=== PATIENT | female | born 1970 | race Caucasian/White ===

== ENCOUNTER → 2019-10-06 | Outpatient (CLI) | payer BC ==
--- NOTE | 2019-10-07 12:09 | MM ---
Reason for exam: screening (asymptomatic). Last mammogram was performed 5 years and 5 months ago. History: Family history of breast cancer in maternal aunt. Physical Findings: A clinical breast exam by your physician is recommended on an annual basis and results should be correlated with mammographic findings. MG 3D Screening Mammo W/Cad Bilateral CC and MLO view(s) were taken. Prior study comparison: May 15, 2014, bilateral MG screening mammo w CAD. There are scattered fibroglandular densities. There is no discrete abnormality. No significant changes when compared with prior studies. ASSESSMENT: Negative, BI-RAD 1 RECOMMENDATION: Routine screening mammogram of both breasts in 1 year.
== END | disposition home or self-care (01) ==
LOC: RADMAMWWP 07:01
PROVIDERS: ATTEND Family Medicine
DX: Z12.31 Encounter for screening mammogram for malignant neoplasm of breast (principal)
CPT/HCPCS: 77063; 77067

== ENCOUNTER → 2019-11-03 | Outpatient (CLI) | payer BC ==
--- NOTE | 2019-11-03 13:30 | ECHOS ---
STRESS ECHOCARDIOGRAM INDICATIONS: Palpitations MEDICATIONS: Lisinopril, HCTZ, Vitamin D, B Complex, Vitamin C, Tumeric, Mutlvitamin. BASELINE HEART RATE: 77 BASELINE BLOOD PRESSURE: 147/49 MAXIMUM HEART RATE: 167 MAXIMUM BLOOD PRESSURE: 175/89 85% MPHR: 145 100% MPHR: 171 METS: 7.0 MAXIMUM STAGE REACHED: 2 TOTAL EXERCISE TIME: 5:00 CLINICAL INFORMATION: Baseline rhythm is a sinus mechanism, rate of 77, poor R-wave progression, borderline left axis deviation. Baseline blood pressure 147/49 mmHg. Patient exercised on Kwabena protocol for 5 minutes reaching a peak rate of 167 beats per minute which is equal to 97% maximum predicted heart rate. Peak blood pressure 175/89 mmHg. Test was terminated due to fatigue. There was no chest pain. Electrocardiograph monitoring revealed no evidence of diagnostic ischemic ST deviation. FINDINGS: Baseline echocardiogram revealed normal wall motion. At peak exercise, there was normal wall motion augmentation with no hypokinesis or dyskinesis. CONCLUSION: 1. Decreased exercise tolerance with normal echocardiograph response to exercise. 2. Normal stress echocardiogram with no evidence of stress-induced ischemia. MMODL / IJN: [id number] /
== END | disposition home or self-care (01) ==
LOC: RADNMMAIN 09:00
PROVIDERS: ATTEND Family Medicine
DX: R00.2 Palpitations (principal)
CPT/HCPCS: 93351

== ENCOUNTER 2019-12-25 22:30 | Emergency (ER) | payer BC ==
[2019-12-25 22:38] VITALS: TEMP 99
--- NOTE | 2019-12-25 22:44 | ED ---
Female Urogenital HPI - General Chief complaint: Urogenital Stated complaint: Poss UTI Time Seen by Provider: 12/25/19 22:41 Source: patient Mode of arrival: ambulatory Limitations: no limitations - History of Present Illness MD Complaint: dysuria, other -: days(s) Location: suprapubic Radiation: non-radiating Severity: moderate Quality: cramping, burning Consistency: constant Improves with: none Worsens with: urination Patient : No Associated Symptoms: denies other symptoms - Related Data Previous Rx's Medication Instructions Recorded Hydrocodone/Acetaminophen [[place] 1 each PO Q6HR PRN #12 tab 12/26/19 5-325] Phenazopyridine [Pyridium] 100 mg PO TID #6 tablet 12/26/19 Allergies Allergy/AdvReac Type Severity Reaction Status Date / Time Penicillins AdvReac Nausea Verified 12/25/19 22:38 Review of Systems ROS Statement: Those systems with pertinent positive or pertinent negative responses have been documented in the HPI. ROS Other: All systems not noted in ROS Statement are negative. Constitutional: Denies: fever, chills Respiratory: Denies: cough, dyspnea Cardiovascular: Denies: chest pain, palpitations, edema Gastrointestinal: Reports: abdominal pain. Denies: nausea, vomiting, diarrhea, constipation, melena, hematochezia Genitourinary: Reports: dysuria, frequency, hematuria. Denies: discharge Musculoskeletal: Denies: back pain Skin: Denies: rash Neurological: Denies: headache Past Medical History Past Medical History: Hypertension History of Any Multi-Drug Resistant Organisms: None Reported Past Surgical History: Joint Replacement Past Psychological History: No Psychological Hx Reported Smoking Status: Never smoker Past Alcohol Use History: Rare Past Drug Use History: None Reported General Exam Limitations: no limitations General appearance: alert, in no apparent distress Head exam: Present: atraumatic, normocephalic Eye exam: Present: normal appearance. Absent: scleral icterus, conjunctival injection ENT exam: Present: normal oropharynx Neck exam: Present: normal inspection, full ROM Respiratory exam: Present: normal lung sounds bilaterally. Absent: respiratory distress, wheezes, rales, rhonchi, stridor Cardiovascular Exam: Present: regular rate, normal rhythm, normal heart sounds. Absent: systolic murmur, diastolic murmur, rubs, gallop GI/Abdominal exam: Present: soft. Absent: distended, tenderness, guarding, rebound, rigid, mass Extremities exam: Present: normal inspection, normal capillary refill. Absent: pedal edema, calf tenderness Back exam: Present: normal inspection. Absent: CVA tenderness (R), CVA tenderness (L), vertebral tenderness Neurological exam: Present: alert Skin exam: Present: warm, dry, intact, normal color. Absent: rash Course Vital Signs 12/25/19 22:34 Temperature 99 F Pulse Rate 92 Respiratory 20 Rate Blood Pressure 136/101 O2 Sat by Pulse 97 Oximetry Medical Decision Making - Lab Data Lab Results 12/25/19 Range/Units 23:20 Urine Color [place] Urine Appearance Cloudy H (Clear) Urine RBC 17 H (0-5) /hpf Urine WBC 62 H (0-5) /hpf Urine WBC Clumps Rare H (None) /hpf Ur Squamous Epith Cells 8 H (0-4) /hpf Urine Bacteria Occasional H (None) /hpf Hyaline Casts 1 (0-2) /lpf Urine Mucus Rare H (None) /hpf Disposition Clinical Impression: Hypertension, Urinary tract infection Disposition: HOME SELF-CARE Condition: Good Instructions (If sedation given, give patient instructions): Urinary Tract Infection in Women (ED), Hypertension (ED) Prescriptions: Hydrocodone/Acetaminophen [[place] 5-325] 1 each PO Q6HR PRN #12 tab PRN Reason: Pain Phenazopyridine [Pyridium] 100 mg PO TID #6 tablet Is patient prescribed a controlled substance at d/c from ED?: Yes When asked, does pt state using other controlled substances?: No If prescribed controlled substance>3 days was MAPS reviewed?: Prescribed <3 Days If opioid is for acute pain is fill amount 7 days or less?: Yes If Rx opioid, was Start Talking consent form obtained?: Yes Referrals: Shahram Mosley MD [REFERRING] - 1-2 days
[2019-12-25] MEDS ORDERED: PHENAZOPYRIDINE 100 MG TAB PO ONE (23:30)
[2019-12-25 23:50] LABS: Appearance,Urine Cloudy (Clear); Bacteria,Urine Occasional /hpf; Hyaline Casts,Urine 1 /lpf (0-2); Mucus,Urine Rare /hpf; RBC,Urine 17 /hpf (0-5); Squamous Epithelial Cell,Urine 8 /hpf (0-4); WBC,Urine 62 /hpf (0-5)
[2019-12-26] LABS: Color,Urine Orange
[2019-12-26] MEDS ORDERED: HYDROcodone/APAP 5-325MG 1 EACH TAB PO STA (00:17)
[2019-12-26] MEDS ORDERED: IBUPROFEN 800 MG TAB PO STA (00:17)
--- NOTE | 2019-12-26 01:11 | CT ---
EXAMINATION TYPE: CT abdomen pelvis wo con DATE OF EXAM: 12/26/2019 COMPARISON: None HISTORY: abd pain CT DLP: 1688.9 mGycm Automated exposure control for dose reduction was used. Lung bases are clear of infiltrate. There is no pleural effusion. Heart size is normal. There is no p ericardial effusion. Stomach is intact. Liver spleen pancreas gallbladder appear normal. Bile ducts a re not dilated. There is no adrenal mass. Kidneys have normal size. There is right side mild hydronephrosis and hydro ureter. There is right side. Ureteral edema. I do not see a definite ureteral calculus. Bladder is al most empty. Appendix is posterior and medial and appears normal. There is no mesenteric edema. There is no ascite s or free air. There is no bowel obstruction. There is left side periureteral edema. I see no definit e left side ureteral calculus. There is no inguinal hernia. Uterus is retroverted. Lumbar vertebra appear intact. There is no compre ssion fracture. Bony pelvis is intact. Hip joint spaces are normal. IMPRESSION: Right-sided hydronephrosis and hydroureter with periureteral edema. No ureteral calculus identified. There is also left side periureteral edema. Appearance of the kidneys could relate to recently passed stones or nonopaque stones.. No calculus seen within the kidneys. Appearance of the upper collecting systems could also relate to acute bilateral pyelonephritis.
[2019-12-26 01:33] VITALS: BP 119/65; PULSE 86; RESP 16
== END 2019-12-26 01:28 | disposition home or self-care (01) ==
LOC: EC 22:30
DX: N39.0 Urinary tract infection, site not specified (principal); I10 Essential (primary) hypertension; Z88.0 Allergy status to penicillin
CPT/HCPCS: 74176; 81001; 87077; 87086; 87186; 99284

== ENCOUNTER → 2020-07-12 | Outpatient (CLI) | payer BC ==
[2020-07-12 10:34] LABS: HCT 40.4 % (37.2-46.3); MCH 32.3 pg (27.0-32.0); MCHC 32.2 g/dL (32.0-37.0); MCV 100.5 fL (80.0-97.0); Mean Platelet Volume 9.9 fL (9.5-12.2); Platelet Count 257 X 10*3/uL (140-440); RBC 4.02 X 10*6/uL (4.10-5.20); WBC 9.17 X 10*3/uL (4.50-10.00)
[2020-07-12 11:56] LABS: Albumin/Globulin Ratio 1.6 (1.60-3.17); Calcium 9.4 mg/dL (8.7-10.3); Chol/HDL Ratio 3.24; Globulin 2.5 g/dL (1.6-3.3); LDL Cholesterol,Calculated 78.6 mg/dL (0.0-131.0); Non-African American GFR(CKD) 75.1 (60.0-200.0); Potassium 4.5 mmol/L (3.5-5.5); Total Bilirubin 0.7 mg/dL (0.2-1.2); Total Protein 6.5 g/dL (6.2-8.2); VLDL Calculation 24.4 mg/dL (5.00-40.00)
== END | disposition home or self-care (01) ==
LOC: LABWHC1 07:12
PROVIDERS: ATTEND Family Medicine
DX: Z00.01 Encounter for general adult medical examination with abnormal findings (principal)
CPT/HCPCS: 36415; 80053; 80061; 85027

== ENCOUNTER 2020-10-05 17:44 | Inpatient (IN) | payer BC, OTHER ==
[2020-10-05] MEDS ORDERED: AMIODARONE 360 MG in DEXTROSE 5% IN WATER 200 ML IV ONE ×2 (18:08)
[2020-10-05] MEDS ORDERED: DEXTROSE 5% IN WATER 100 ML with AMIODARONE 150 MG IV ONE (18:08)
--- NOTE | 2020-10-05 18:12 | ED ---
General Adult HPI - General Chief complaint: Arrhythmia/Palpitations Stated complaint: Fast HR/SOB Time Seen by Provider: 10/05/20 17:56 Source: patient Mode of arrival: ambulatory Limitations: no limitations - History of Present Illness Initial comments: Dictation was produced using [email or web address] dictation software. please excuse any grammatical, word or spelling errors. Chief Complaint: 50-year-old female presents with palpitations History of Present Illness: Is a 50-year-old female presents today with palpitations. Patient states that she's been having episodes of palpitations for the last year and a half. She did not seek any medical attention for it. Patient states at 1:15 PM her symptoms began. He complains of feeling like her heart is beating out of her chest. She started to develop some very mild shortness of breath no chest pain. Patient states she had a stress tests last year which is unremarkable. She has not seen a rubber worker for her palpitations. Patient states she started having episodes of this that occur every other month. Typically these episodes have been resolving on her own except today it has not improved or has not gone back to normal. Patient has history of hypertension. The ROS documented in this emergency department record has been reviewed and confirmed by me. Those systems with pertinent positive or negative responses have been documented in the HPI. All other systems are other negative and/or noncontributory. PHYSICAL EXAM: General Impression: Alert and oriented x3, mild distress HEENT: Normocephalic atraumatic, extra-ocular movements intact, pupils equal and reactive to light bilaterally, mucous membranes moist. Cardiovascular: Tachycardic Chest: Able to complete full sentences, no retractions, no tachypnea Abdomen: abdomen soft, non-tender, non-distended, no organomegaly Musculoskeletal: Pulses present and equal in all extremities, no peripheral edema Motor: no focal deficits noted Neurological: CN II-XII grossly intact, no focal motor or sensory deficits noted Skin: Intact with no visualized rashes Psych: Normal affect and mood ED course: 50 yo Female presents to the emergency department for palpitations. As upon arrival shows heart rate of 180, 91% on room air. EKG shows wide QRS tachycardia concerning for ventricular tachycardia. There was an EKG inpatient stress EKG from October of last year which did not show any delta waves. EKG that time looked normal sinus rhythm without any abnormalities. Patient started on amiodarone and converted. According to the corporate consultant she converted at 639pm Patient reevaluated. Repeat EKG shows normal sinus rhythm with a rate of 100. There is no interval abnormalities. No delta wave or Brug[place] wave. Chest x-ray normal unremarkable. Labs are benign. Patient will be admitted for cardiology consultation. Patient will be admitted to [facility]. EKG interpretation: Ventricular rate 213, ventricular tachycardia, QRS 120, QTC 414. No HI prolongation, no QTC prolongation, no ST or T-wave changes noted. - Related Data Previous Rx's Medication Instructions Recorded Hydrocodone/Acetaminophen [[place] 1 each PO Q6HR PRN #12 tab 12/26/19 5-325] Phenazopyridine [Pyridium] 100 mg PO TID #6 tablet 12/26/19 Allergies Allergy/AdvReac Type Severity Reaction Status Date / Time Penicillins AdvReac Nausea Verified 10/05/20 17:55 Review of Systems ROS Statement: Those systems with pertinent positive or pertinent negative responses have been documented in the HPI. ROS Other: All systems not noted in ROS Statement are negative. Past Medical History Past Medical History: Hypertension History of Any Multi-Drug Resistant Organisms: None Reported Past Surgical History: Joint Replacement Past Psychological History: No Psychological Hx Reported Smoking Status: Never smoker Past Alcohol Use History: Rare Past Drug Use History: None Reported General Exam Limitations: no limitations Course Vital Signs 10/05/20 10/05/20 10/05/20 17:53 18:16 18:25 Temperature 98.2 F Pulse Rate 180 H 213 H 197 H Respiratory 18 22 Rate Blood Pressure 128/98 127/31 O2 Sat by Pulse 91 L 96 Oximetry 10/05/20 10/05/20 18:38 18:40 Temperature Pulse Rate 189 H 104 H Respiratory 16 Rate Blood Pressure 125/80 125/80 O2 Sat by Pulse 96 Oximetry Medical Decision Making - Lab Data Result diagrams: 10/05/20 18:14 10/05/20 18:14 Lab Results 10/05/20 10/05/20 Range/Units 18:14 18:14 WBC 15.7 H (3.8-10.6) k/uL RBC 4.26 (3.80-5.40) m/uL Hgb 14.4 (11.4-16.0) gm/dL Hct 41.3 (34.0-46.0) % MCV 97.1 (80.0-100.0) fL MCH 33.8 (25.0-35.0) pg MCHC 34.8 (31.0-37.0) g/dL RDW 12.2 (11.5-15.5) % Plt Count 303 (150-450) k/uL MPV 7.2 Neutrophils % 79 % Lymphocytes % 15 % Monocytes % 4 % Eosinophils % 1 % Basophils % 1 % Neutrophils # 12.3 H (1.3-7.7) k/uL Lymphocytes # 2.3 (1.0-4.8) k/uL Monocytes # 0.7 (0-1.0) k/uL Eosinophils # 0.1 (0-0.7) k/uL Basophils # 0.1 (0-0.2) k/uL Sodium 141 (137-145) mmol/L Potassium 4.4 (3.5-5.1) mmol/L Chloride 104 (98-107) mmol/L Carbon Dioxide 27 (22-30) mmol/L Anion Gap 10 mmol/L BUN 19 H (7-17) mg/dL Creatinine 0.87 (0.52-1.04) mg/dL Est GFR (CKD-EPI)AfAm >90 (>60 ml/min/1.73 sqM) Est GFR (CKD-EPI)NonAf 78 (>60 ml/min/1.73 sqM) Glucose 173 H (74-99) mg/dL Calcium 9.5 (8.4-10.2) mg/dL Ionized Calcium Daniel 4.9 (4.5-5.3) mg/dL Magnesium 1.7 (1.6-2.3) mg/dL Critical Care Time Critical Care Time: Yes Total Critical Care Time: 33 Disposition Clinical Impression: V-tach Disposition: ADMITTED IP TO THIS HOSP Condition: Fair Referrals: Kyle Plasencia MD [Primary Care Provider] - 1-2 days
[2020-10-05 18:34] LABS: Basophils # (A) 0.1 k/uL (0-0.2); Basophils % (A) 1 %; Eosinophils # (A) 0.1 k/uL (0-0.7); Eosinophils % (A) 1 %; HCT 41.3 % (34.0-46.0); HGB 14.4 gm/dL (11.4-16.0); Lymphocytes # (A) 2.3 k/uL (1.0-4.8); Lymphocytes % (A) 15 %; MCH 33.8 pg (25.0-35.0); MCHC 34.8 g/dL (31.0-37.0); MCV 97.1 fL (80.0-100.0); Mean Platelet Volume 7.2; Monocytes # (A) 0.7 k/uL (0-1.0); Monocytes % (A) 4 %; Neutrophils # (A) 12.3 k/uL (1.3-7.7); Neutrophils % (A) 79 %; Platelet Count 303 k/uL (150-450); RBC 4.26 m/uL (3.80-5.40); RDW 12.2 % (11.5-15.5); WBC 15.7 k/uL (3.8-10.6)
[2020-10-05 18:44] LABS: Ionized Calcium 4.9 mg/dL (4.5-5.3)
[2020-10-05 18:50] LABS: African American GFR (CKD) >90 (>60 ml/min/1.73 sqM); Anion Gap 10 mmol/L; Blood Urea Nitrogen 19 mg/dL (7-17); Calcium 9.5 mg/dL (8.4-10.2); Carbon Dioxide 27 mmol/L (22-30); Chloride 104 mmol/L (98-107); Glucose 173 mg/dL (74-99); Magnesium 1.7 mg/dL (1.6-2.3); Non-African American GFR(CKD) 78 (>60 ml/min/1.73 sqM); Potassium 4.4 mmol/L (3.5-5.1); Sodium 141 mmol/L (137-145)
[2020-10-05 18:58] LABS: INR 0.9 (<1.2); Partial Thromboplastin Time 21.9 sec (22.0-30.0); Prothrombin Time 10.2 sec (9.0-12.0)
--- NOTE | 2020-10-05 18:58 | XR ---
EXAMINATION TYPE: XR chest 1V portable DATE OF EXAM: 10/05/2020 COMPARISON: NONE HISTORY: Palpitations and V. tach. TECHNIQUE: Single AP portable frontal upright view of the chest is obtained. FINDINGS: Slightly elevated left hemidiaphragm. There is mild chronic parenchymal changes without montalvo spicious focal air space opacity, pleural effusion, or pneumothorax seen. The cardiac silhouette siz e is upper limits of normal. Overlying EKG leads. The osseous structures are intact. IMPRESSION: No acute process.
[2020-10-05] MEDS ORDERED: NALOXONE 0.4 MG/ML 1 ML VIAL IV PRN (19:04)
[2020-10-05] MEDS ORDERED: HEPARIN SODIUM 1,000 UN/ML (10ML VL) IV ONE (19:20)
[2020-10-05] MEDS ORDERED: ASPIRIN 325 MG TAB PO STA (19:20)
[2020-10-05] MEDS ORDERED: HEPARIN SODIUM 1,000 UN/ML (10ML VL) IV PRN (19:20)
[2020-10-05] MEDS ORDERED: HEPARIN SOD,PORK IN 0.45% NACL 25,000 UNIT in 0.45% NACL 1 250ML.BAG IV SCH (19:30)
[2020-10-05] MEDS ORDERED: MAGNESIUM SULFATE-D5W PMX 1 GM in DEXTROSE/WATER 1 100ML.BAG IVPB ONE (23:21)
[2020-10-05] MEDS: SODIUM CHLORIDE 0.9% 1,000 ML IV SCH (23:59)
[2020-10-06] MEDS: AMIODARONE 450 MG in DEXTROSE 5% IN WATER 250 ML IV SCH ×4 (00:28→17:05)
--- NOTE | 2020-10-06 01:59 | P.HPIM ---
History of Present Illness H&P Date: 10/05/20 Chief Complaint: palpitation 50 year old female with intermittent asthma, obesity patient comes in due to persistent palpitations of few hours duration. it started randomly , she was initially asymptomatic , and carried on her daily activities, went shopping and driving among other activities, she reports all she had to do is take it slow, as she was feeling tired little bit. then few hours later , she noticed that palpitations persisted, and now associated with mid chest discomfort and and nausea, denies any SOB or sweating. this has happened before many times over the past few years, but usually short lived events. she had a stress test over a year ago and was negative. she never had personnel monitor , and no abnormal rhythm ever captured. today while in the ED, she was foundto have VTACH. she was started on amiodarone , and found to have elevated trops , for which started on heparin drip for high risk NSTEMI . she otherwise believes she is in good health , and denies any fever, chills, cough, abd pain , or GI bleeding, no recent travel or hospitalization. her father of serious heart arrhythmia at young age of 44 Review of Systems Pertinent positives as noted in HPI. All other systems were reviewed and are neg ative Past Medical History Past Medical History: Hypertension History of Any Multi-Drug Resistant Organisms: None Reported Past Surgical History: Joint Replacement Past Anesthesia/Blood Transfusion Reactions: Postoperative Nausea & Vomiting (PONV) Past Psychological History: No Psychological Hx Reported Smoking Status: Never smoker Past Alcohol Use History: Rare Past Drug Use History: None Reported - Past Family History father Additional Family Medical History / Comment(s): at 44 of major arrhythmia Medications and Allergies Home Medications Medication Instructions Recorded Confirmed Type Ascorbic Acid [Vitamin C] 1,000 mg PO DAILY 10/05/20 10/05/20 History Cholecalciferol [Vitamin D3 (25 25 mcg PO DAILY 10/05/20 10/05/20 History Mcg = 1000 Iu)] Lisinopril-Hctz 10-12.5 mg 1 tab PO DAILY 10/05/20 10/05/20 History [Zestoretic 10-12.5] Multivitamins, Thera [Multivitamin 1 tab PO DAILY 10/05/20 10/05/20 History (formulary)] Turmeric Root Extract [Turmeric] 500 mg PO DAILY 10/05/20 10/05/20 History Vitamin B Complex 1 cap PO DAILY 10/05/20 10/05/20 History Allergies Allergy/AdvReac Type Severity Reaction Status Date / Time Penicillins AdvReac Nausea Verified 10/05/20 19:32 Physical Exam Vitals: Vital Signs Temp Pulse Pulse Resp BP BP Pulse Ox 10/05/20 22:25 98.1 F 91 16 113/68 95 10/05/20 20:58 97 18 138/63 99 10/05/20 18:40 104 H 16 125/80 96 10/05/20 18:38 189 H 125/80 10/05/20 18:25 197 H 22 127/31 96 10/05/20 18:16 213 H 10/05/20 17:53 98.2 F 180 H 18 128/98 91 L Intake and Output 10/05/20 10/05/20 10/06/20 14:59 22:59 06:59 Other: Weight 124.738 kg Constitutional: No acute distress, conversant, pleasant Eyes: Anicteric sclerae, moist conjunctiva, Pupils equal round reactive to light ENMT: NC/AT Oropharynx clear, no erythema, or exudates Neck: Supple, FROM, no masses, or JVD No carotid bruits No thyromegaly Lungs: Clear to auscultation Clear to percussion Normal respiratory effort, no accessory muscle use Cardiovascular: Heart regular in rate and rhythm, No murmurs, gallops, or rubs No peripheral edema Abdominal: Soft Nontender, no guarding, rebound or rigidity Abdomen moving with respiration Normoactive bowel sounds No hepatomegaly, No splenomegaly No palpable mass No abdominal wall hernia noted Skin: Normal temperature, tone, texture, turgor No induration No subcutaneous nodules No rash, lesions No ulcers Extremities: No digital cyanosis No clubbing Pedal pulses intact and symmetrical Radial pulses intact and symmetrical No calf tenderness Psychiatric: Alert and oriented to person, place and time Appropriate affect fair judgement Neuro Muscles Strength 5/5 in all 4 extremities Sensation to light touch grossly present throughout Cranial nerves II-XII grossly intact No focal sensory deficits Lymphatics: no palpable cervical or supraclavicular , or inguinal lymph nodes Results CBC & Chem 7: 10/05/20 18:14 10/05/20 18:14 Labs: Abnormal Lab Results - Last 24 Hours (Table) 10/05/20 10/05/20 10/05/20 Range/Units 18:14 18:14 18:14 WBC 15.7 H (3.8-10.6) k/uL Neutrophils # 12.3 H (1.3-7.7) k/uL APTT 21.9 L (22.0-30.0) sec BUN 19 H (7-17) mg/dL Glucose 173 H (74-99) mg/dL Troponin I (0.000-0.034) ng/mL 10/05/20 Range/Units 18:14 WBC (3.8-10.6) k/uL Neutrophils # (1.3-7.7) k/uL APTT (22.0-30.0) sec BUN (7-17) mg/dL Glucose (74-99) mg/dL Troponin I 0.111 H* (0.000-0.034) ng/mL Thrombosis Risk Factor Assmnt - Choose All That Apply Each Factor Represents 1 point: Age 41-60 years Thrombosis Risk Factor Assessment Total Risk Factor Score: 1 Thrombosis Risk Factor Assessment Level: Low Risk Assessment and Plan Assessment: high risk NSTEMI with Vtach rule out ACS personnel monitor trend trops cardio consult correct electrolyte , hypomagnesemia amiodarone drip heparin drip monitor vital signs fall precautions tsh wnl reactive leukocytosis intermittent asthma , PRN duoneb obesity , life style modification CODE STATUS:full code DVT prophylaxis: heparin drip Discussed with: Patient, ER, RN Anticipated length of stay > than [address]: home A total of 75 minutes was spent on the care of this complex patient more than 50% of the time was spent in counseling and care coordination.
[2020-10-06] MEDS ORDERED: IPRATROPIUM-ALBUTEROL 3 ML NEB INHALATION PRN (02:26)
[2020-10-06 08:37] LABS: Basophils # (A) 0.1 k/uL (0-0.2); Basophils % (A) 1 %; Eosinophils # (A) 0.2 k/uL (0-0.7); Eosinophils % (A) 2 %; HCT 39.3 % (34.0-46.0); HGB 13.1 gm/dL (11.4-16.0); Lymphocytes # (A) 2.2 k/uL (1.0-4.8); Lymphocytes % (A) 21 %; MCH 32.9 pg (25.0-35.0); MCHC 33.3 g/dL (31.0-37.0); MCV 98.9 fL (80.0-100.0); Mean Platelet Volume 7.2; Monocytes # (A) 0.5 k/uL (0-1.0); Monocytes % (A) 4 %; Neutrophils # (A) 7.5 k/uL (1.3-7.7); Neutrophils % (A) 71 %; Platelet Count 220 k/uL (150-450); RBC 3.98 m/uL (3.80-5.40); RDW 12.2 % (11.5-15.5); WBC 10.6 k/uL (3.8-10.6)
[2020-10-06] MEDS ORDERED: ALPRAZolam 0.5 MG TAB PO PRN (08:51)
[2020-10-06] MEDS ORDERED: NITROGLYCERIN SL TABS 0.4 MG TAB SUBLINGUAL PRN (08:51)
[2020-10-06] MEDS ORDERED: ALPRAZolam 0.25 MG TAB PO PRN (08:51)
[2020-10-06] MEDS ORDERED: ATORVASTATIN 80 MG TAB PO STA (08:51)
[2020-10-06 08:52] LABS: ALT 46 U/L (4-34); AST 40 U/L (14-36); African American GFR (CKD) >90 (>60 ml/min/1.73 sqM); Albumin 3.9 g/dL (3.5-5.0); Alkaline Phosphatase 63 U/L (38-126); Anion Gap 6 mmol/L; Blood Urea Nitrogen 17 mg/dL (7-17); Calcium 8.4 mg/dL (8.4-10.2); Carbon Dioxide 27 mmol/L (22-30); Chloride 106 mmol/L (98-107); Glucose 119 mg/dL (74-99); Non-African American GFR(CKD) >90 (>60 ml/min/1.73 sqM); Potassium 3.9 mmol/L (3.5-5.1); Sodium 139 mmol/L (137-145); Total Bilirubin 0.7 mg/dL (0.2-1.3); Total Protein 6.8 g/dL (6.3-8.2)
[2020-10-06] MEDS: LISINOPRIL-HCTZ 10-12.5 MG 1 EACH TAB PO SCH (09:03)
[2020-10-06] MEDS ORDERED: MIDAZOLAM 2 MG/2 ML VIAL IVP ONE (10:10)
[2020-10-06] MEDS ORDERED: fentaNYL (PF) 50 MCG/ML 2 ML AMP IVP ONE (10:10)
[2020-10-06] MEDS ORDERED: LIDOCAINE 1% INJ 10MG/ML (20 ML MDV) SQ ONE (10:15)
[2020-10-06] MEDS ORDERED: VERAPAMIL SYRINGE (5 MG/10 ML) INTRAARTER ONE (10:18)
[2020-10-06] MEDS ORDERED: HEPARIN SODIUM 1,000 UN/ML (10ML VL) IV ONE (10:20)
[2020-10-06] MEDS ORDERED: IV FLUID CONTINUATION 1,000 ML IV ONE (10:26)
[2020-10-06] MEDS ORDERED: IOPAMIDOL-370 125ML BTL INJ ONE ×2 (10:28)
--- NOTE | 2020-10-06 10:33 | ECHOF ---
Referral Reason:LV function MEASUREMENTS -------- HEIGHT: 157.5 cm WEIGHT: 126.1 kg BP: 113/65 IVSd: 1.3 cm (0.6 - 1.1) LVIDd: 4.0 cm (3.9 - 5.3) LVPWd: 1.4 cm (0.6 - 1.1) IVSs: 1.8 cm LVIDs: 1.8 cm LVPWs: 1.9 cm Ao Diam: 3.0 cm (2.0 - 3.7) AV Cusp: 1.8 cm (1.5 - 2.6) LA Diam: 2.9 cm (2.7 - 3.8) MV EXCURSION: 16.486 mm (> 18.000) MV EF SLOPE: 145 mm/s (70 - 150) EPSS: 0.4 cm MV E Cedric: 1.04 m/s MV DecT: 201 ms MV A Cedric: 0.76 m/s MV E/A Ratio: 1.37 RAP: 5.00 mmHg RVSP: 15.32 mmHg FINDINGS -------- Sinus rhythm. This was a technically difficult study with suboptimal views. The left ventricular size is normal. There is moderate concentric left ventricular hypertrophy. O verall left ventricular systolic function is normal with, an EF between 55 - 60 %. The right ventricle is normal in size. The left atrial size is normal. The right atrial size is normal. Lumason used The aortic valve is trileaflet, and appears structurally normal. No aortic stenosis or regurgitation. The mitral valve is normal. Mild mitral regurgitation is present. The tricuspid valve appears structurally normal. Mild tricuspid regurgitation present. Right vent ricular systolic pressure is normal at < 35 mmHg. There is no pulmonic regurgitation present. The aortic root size is normal. IVC Not well visulized. There is no pericardial effusion. CONCLUSIONS -------- 1. This was a technically difficult study with suboptimal views. 2. There is moderate concentric left ventricular hypertrophy. 3. Overall left ventricular systolic function is normal with, an EF between 55 - 60 %. 4. The left atrial size is normal. 5. The aortic valve is trileaflet, and appears structurally normal. No aortic stenosis or regurgitati on. 6. Mild mitral regurgitation is present. 7. Mild tricuspid regurgitation present. 8. There is no pericardial effusion. BESSEMER CONVERTER OPERATOR: Anna Ball RDCS
--- NOTE | 2020-10-06 10:36 | P.CRDCN ---
History of Present Illness History of present illness: HISTORY OF PRESENTING ILLNESS This is a pleasant 50-year-old female past medical history significant for asthma, hypertension, COVID-19 in July. She does not follow with a cardiol ogist. We have been asked to see in consultation for ventricular tachycardia. Patient states that she's been having symptoms of palpitations and shortness of breath for the past 3-4 years. Yesterday around 1:30 PM she started having similar episodes of palpitations, shortness of breath. She was getting ready for work she started to go for a walk because sometimes activity made him feel better. She continued to have the symptoms but this time had increased nausea and a headache and started to feel weak and bilateral arms. The symptoms were new since she decided to present to the emergency department. She denies chest pain, lightheadedness, dizziness, presyncope, syncope, symptoms of orthopnea or PND. She states that she has been followed by her primary care provider that has been monitoring this she did have a stress echo in October 2019, patient exercised for 5 minutes with a peak rate of 167 bpm which was equal to 97% maximal predicted heart rate. Stress echocardiogram test revealed no evidence of stress-induced ischemia. She also has have EKGs in her PCP's office and no capture of an abnormal rhythm. Patient denies history diabetes, VA, stroke, dyslipidemia. She states that her father had an VA at age 44, and of cardiac arrest a few months after that. Her mother also had an VA in her 50s, of cancer. On arrival to emergency department, EKG revealed wide QRS tachycardia consistent of ventricular tachycardia heart rate 213. Patient was given amiodarone 150 mg bolus and started on amiodarone drip 1 mg/min, started on a heparin drip and given 325mg Aspirin, and given 1gm of Magnesium sulfate. Patient converted back to sinus rhythm, EKG reveals sinus rhythm, heart rate 100, T wave inversion in lead III. DIAGNOSTICS Chest xray no acute cardiopulmonary process Telemetry reviewed- overnight patient in sinus rhythm HR 60-70s, no further episodes of ventricular tachycardia or ectopy noted. Laboratory reviewed, Troponin 0.11-->0.19, WBC 15.7, hemoglobin 14.4, platelets 303, sodium 141, potassium 4.4, BUN 19, serum creatinine 0.7, glucose 173, m agnesium 1.7, AST 40, ALT 46, TSH within normal limits Current home daily cardiac medications include lisinoprilHydrocort thiazide 1012.5mg daily REVIEW OF SYSTEMS At the time of my exam: CONSTITUTIONAL: Denies fever or chills. CARDIOVASCULAR: +palpitations +shortness of breath, Denies chest pain, orthopnea, PND RESPIRATORY: Denies cough. GASTROINTESTINAL: +nausea Denies abdominal pain, diarrhea, constipation, vomiting. MUSCULOSKELETAL: Denies myalgias. NEUROLOGIC: +headache Denies numbness, tingling, or weakness. ENDOCRINE: Denies fatigue, weight change, polydipsia or polyurina. GENITOURINARY: Denies burning, hematuria or urgency with micturation. HEMATOLOGIC: Denies history of anemia or bleeding. PHYSICAL EXAMINATION Blood pressure 111/56 heart rate 70 afebrile and maintaining oxygen saturation 99% on room air CONSTITUTIONAL: No apparent distress. HEENT: Head is normocephalic. Pupils are equal, round. Sclerae anicteric. Mucous membranes of the mouth are moist. No JVD. No carotid bruit. CHEST EXAMINATION: Lungs are clear to auscultation. No chest wall tenderness is noted on palpation or with deep breathing. HEART EXAMINATION: Regular rate and rhythm. S1, S2 heard. No murmurs, gallops or rub. ABDOMEN: Soft, nontender. Positive bowel sounds. EXTREMITIES: 2+ peripheral pulses, no lower extremity edema and no calf tenderness. NEUROLOGIC EXAMINATION: Patient is awake, alert and oriented x3. ASSESSMENT Ventricular Tachycardia Elevated troponin History of Hypertension History of asthma Family history of coronary artery disease Obesity BMI 50 PLAN -Will obtain 2D echocardiogram -We recommend cardiac catheterization. Patient is agreeable to the procedure. -I have discussed the risks, benefits and alternative therapies for the above- mentioned procedure and for both sedation/analgesia as well as necessary blood product administration, if indicated, as they pertain to this patient and patient's at bedside. The patient has indicated understanding and acceptance of the risks and procedures discussed. Questions have been answered appropriately and he is agreeable to move forward with the above-stated procedure. -Further recommendations based on findings of cardiac catheterization Nurse Practitioner note has been reviewed, I agree with a documented findings and plan of care. Patient was seen and examined. Past Medical History Past Medical History: Hypertension Additional Past Medical History / Comment(s): COVID in july History of Any Multi-Drug Resistant Organisms: None Reported Past Surgical History: Joint Replacement Past Anesthesia/Blood Transfusion Reactions: Postoperative Nausea & Vomiting (PONV) Past Psychological History: No Psychological Hx Reported Smoking Status: Never smoker Past Alcohol Use History: Rare Past Drug Use History: None Reported - Past Family History father Additional Family Medical History / Comment(s): at 44 of major arrhythmia Medications and Allergies Home Medications Medication Instructions Recorded Confirmed Type Ascorbic Acid [Vitamin C] 1,000 mg PO DAILY 10/05/20 10/05/20 History Cholecalciferol [Vitamin D3 (25 25 mcg PO DAILY 10/05/20 10/05/20 History Mcg = 1000 Iu)] Lisinopril-Hctz 10-12.5 mg 1 tab PO DAILY 10/05/20 10/05/20 History [Zestoretic 10-12.5] Multivitamins, Thera [Multivitamin 1 tab PO DAILY 10/05/20 10/05/20 History (formulary)] Turmeric Root Extract [Turmeric] 500 mg PO DAILY 10/05/20 10/05/20 History Vitamin B Complex 1 cap PO DAILY 10/05/20 10/05/20 History Allergies Allergy/AdvReac Type Severity Reaction Status Date / Time Penicillins AdvReac Nausea Verified 10/05/20 19:32 Physical Exam Vitals: Vital Signs Temp Pulse Pulse Resp BP BP Pulse Ox 10/06/20 04:00 97.6 F 86 16 113/65 99 10/06/20 00:00 87 16 118/73 99 10/05/20 22:25 98.1 F 91 16 113/68 95 10/05/20 20:58 97 18 138/63 99 10/05/20 18:40 104 H 16 125/80 96 10/05/20 18:38 189 H 125/80 10/05/20 18:25 197 H 22 127/31 96 10/05/20 18:16 213 H 10/05/20 17:53 98.2 F 180 H 18 128/98 91 L Intake and Output 10/05/20 10/06/20 10/06/20 22:59 06:59 14:59 Intake Total 62.167 0 Balance 62.167 0 Intake: Intake, IV Titration 62.167 Amount Heparin Sod,Pork in 0.45% 62.167 NaCl 25,000 unit In 0.45 % NaCl 1 250ml.bag @ 8. 0168 UNITS/KG/HR 10 mls/ hr IV .Q24H [facility] Rx#: [id number] Oral 0 Other: Voiding Method Toilet # Voids 2 Weight 124.738 kg 126.3 kg Results 10/06/20 08:00 10/06/20 08:00 Cardiac Enzymes 10/05/20 10/06/20 Range/Units 18:14 08:00 AST 40 H (14-36) U/L Troponin I 0.111 H* (0.000-0.034) ng/mL Coagulation 10/05/20 10/06/20 Range/Units 18:14 02:03 PT 10.2 (9.0-12.0) sec APTT 21.9 L 27.6 (22.0-30.0) sec CBC 10/05/20 10/06/20 Range/Units 18:14 08:00 WBC 15.7 H 10.6 (3.8-10.6) k/uL RBC 4.26 3.98 (3.80-5.40) m/uL Hgb 14.4 13.1 (11.4-16.0) gm/dL Hct 41.3 39.3 (34.0-46.0) % Plt Count 303 220 (150-450) k/uL Comprehensive Metabolic Panel 10/05/20 10/06/20 Range/Units 18:14 08:00 Sodium 141 139 (137-145) mmol/L Potassium 4.4 3.9 (3.5-5.1) mmol/L Chloride 104 106 (98-107) mmol/L Carbon Dioxide 27 27 (22-30) mmol/L BUN 19 H 17 (7-17) mg/dL Creatinine 0.87 0.70 (0.52-1.04) mg/dL Glucose 173 H 119 H (74-99) mg/dL Calcium 9.5 8.4 (8.4-10.2) mg/dL AST 40 H (14-36) U/L ALT 46 H (4-34) U/L Alkaline Phosphatase 63 (38-126) U/L Total Protein 6.8 (6.3-8.2) g/dL Albumin 3.9 (3.5-5.0) g/dL Current Medications Generic Name Dose Route Start Last Admin Trade Name Freq PRN Reason Stop Dose Admin Albuterol/Ipratropium 3 ml 10/06/20 02:26 Ipratropium-Albuterol 3 Ml Neb INHALATION RT-QID PRN Shortness Of Breath Or Wheezing Alprazolam 0.25 mg 10/06/20 08:51 Alprazolam 0.25 Mg Tab PO Q6HR PRN Mild Anxiety Alprazolam 0.5 mg 10/06/20 08:51 Alprazolam 0.5 Mg Tab PO Q6HR PRN Moderate Anxiety Lisinopril/HCTZ 1 each 10/06/20 09:00 Lisinopril-Hctz 10-12.5 Mg 1 Each Tab PO DAILY [facility] Heparin Sodium (Porcine) 0 unit 10/05/20 19:20 Heparin Sodium 1,000 Un/Ml (10ml Vl) IV PER PROTOCOL PRN Low PTT Protocol Amiodarone HCl 450 mg/ 250 mls @ 16.667 mls/hr 10/06/20 00:00 10/06/20 00:28 Dextrose/Water IV 10/06/20 17:59 0.5 mg/min .Q15H [facility] 16.667 mls/hr Administration Protocol 0.5 MG/MIN Sodium Chloride 1,000 mls @ 20 mls/hr 10/05/20 19:15 10/05/20 23:59 Saline 0.9% IV Not Given .Q24H [facility] Heparin Sodium/Sodium Chloride 250 mls @ 10 mls/hr 10/05/20 19:30 10/06/20 03:32 25,000 unit/ Sodium Chloride IV 10.42 units/kg/hr .Q24H [facility] 13 mls/hr Titration Protocol 8.0168 UNITS/KG/HR Heparin Sodium (Porcine) 10, 1,001 mls @ 999 mls/hr 10/07/20 07:00 000 unit/ Sodium Chloride IRRIGATION 10/07/20 23:00 ONCE PRN INTRA-OP Heparin Sodium (Porcine) 2,500 250.5 mls @ 250 mls/hr 10/07/20 07:00 unit/ Sodium Chloride IRRIGATION 10/07/20 23:00 ONCE PRN INTRA-OP Naloxone HCl 0.2 mg 10/05/20 19:04 Naloxone 0.4 Mg/Ml 1 Ml Vial IV Q2M PRN Opioid Reversal Nitroglycerin 0.4 mg 10/06/20 08:51 Nitroglycerin Sl Tabs 0.4 Mg Tab SUBLINGUAL Q5M PRN Chest Pain Intake and Output 10/05/20 10/06/20 10/06/20 22:59 06:59 14:59 Intake Total 62.167 0 Balance 62.167 0 Intake: Intake, IV Titration 62.167 Amount Heparin Sod,Pork in 0.45% 62.167 NaCl 25,000 unit In 0.45 % NaCl 1 250ml.bag @ 8. 0168 UNITS/KG/HR 10 mls/ hr IV .Q24H [facility] Rx#: [id number] Oral 0 Other: Voiding Method Toilet # Voids 2 Weight 124.738 kg 126.3 kg 10/06/20 08:00 10/06/20 08:00
[2020-10-06] MEDS ORDERED: RX INFO: IV CONTRAST WAS GIVEN 1 EACH MISC MISCELLANE PRN (10:42)
--- NOTE | 2020-10-06 10:50 | P.CARDCATH ---
Date of Procedure: 10/06/20 Preoperative Diagnosis: Ventricular tachycardia and abnormal troponin and family history of ischemic heart disease Postoperative Diagnosis: Normal coronary arteries. Elevated end-diastolic pressure Procedure(s) Performed: Left heart catheterization with left ventriculography Description of Procedure: HISTORY: This is a 50-year-old female with history of hypertension was admitted to the hospital with complaints of palpitations and chest discomfort. Patient was in wide complex tachycardia suggestive of ventricular tachycardia. Patient's troponins are mildly abnormal. Patient has history of ischemic heart disease in the family. She is advised to have a cardiac catheterization for definitive diagnosis and to rule out any underlying ischemic heart disease CONSENT:I have discussed the risks, benefits and alternative therapies for the above-mentioned procedure and for both sedation/analgesia as well as necessary blood product administration, if indicated, as they pertain to this patient. The patient has indicated understanding and acceptance of the risks and procedures discussed. PROCEDURE: Patient was brought to the lab in a fasting state. Patient was given some IV sedation. The right wrist is infiltrated with lidocaine and right radial artery was entered using Seldinger technique. A 6-Kosovan catheter was left in place and selective coronary arteriography and left ventriculography was performed. Patient tolerated the procedure well. TR band was applied for hemostasis. No immediate complications were noted and patient was transferred to medical floor in a stable condition Conscious Sedation: Versed 2mg Fentanyl 50 g Duration 25minutes HEMODYNAMICS: The aortic pressure is 100/70. The left ventricle end-diastolic pressure is about 15-20. There was no gradient across the aortic valve SELECTIVE CORONARY ARTERIOGRAPHY: LEFT MAIN: Normal length and free of occlusive disease THE LEFT ANTERIOR DESCENDING CORONARY ARTERY:. Fair caliber vessel giving rise to good-sized diagonal branch. The LAD and branches are free of occlusive disease THE LEFT CIRCUMFLEX AND IS CORONARY ARTERY:. Moderate caliber vessel and free of occlusive disease THE RIGHT CORONARY ARTERY:. Dominant vessel giving rise to PDA and PLV and free of occlusive disease LEFT VENTRICULOGRAPHY:. This was done in 30 right ventricle like projection. Revealed normal-sized cardiac silhouette with preserved LV function FINAL IMPRESSION: Normal coronary arteries. Normal LV function. Elevated end-diastolic pressure PLAN:. Continuation medical therapy. EP evaluation PROGNOSIS: Guarded
[2020-10-06] MEDS: SODIUM CHLORIDE 0.9% 1,000 ML IV SCH (11:00)
--- NOTE | 2020-10-06 11:44 | P.PN ---
Subjective Progress Note Date: 10/06/20 Principal diagnosis: chest pain Patient is a 50 yo CF with a hx of HTN, palpitations, and obesity who presetned to the emergency department due to palpitaitons. She was found to be in ventricular tachycardia. She was started on amiodarone in the ER and converted to normal sinus rhythm. She was found have mildly elevated troponin. She was also started on a heparin drip. On the morning after admission she was taken for cardiac catheterization which did not reveal any signs of significant ischemia. Plan is for EP evaluation. Patient seen and examined at bedside. Currently she is chest pain-free, no palpitations, no shortness of breath, no nausea. General: non toxic, no distress, appears at stated age, obese Derm: warm, dry Head: atraumatic, normocephalic, symmetric Eyes: EOMI, no lid lag, anicteric sclera Mouth: no lip lesion, mucus membranes moist Cardiovascular: S1S2 reg, no murmur, positive posterior tibial pulse bilateral, Lungs: CTA bilateral, no rhonchi, no rales , no accessory muscle use Abdominal: soft, nontender to palpation, no guarding, no appreciable organomegaly Ext: no gross muscle atrophy, no edema, no contractures Neuro: CN II-XI grossly intact, no focal neuro deficits Psych: Alert, oriented, appropriate affect Ventricular tachycardia -Continue with amiodarone -EP evaluation -Telemetry Non-ST segment elevated myocardial infarction type II secondary to demand ischemia from ventricular tachycardia -Risk factor modification, cholesterol levels were checked June 2020 which showed an LDL of 78.6, HDL 46, triglycerides 122, and total cholesterol 149 - heparin gtt Hypertension, controlled -Continue with lisinopril and hydrochlorothiazide Morbid obesity with BMI 50.9 -Outpatient structured weight loss DVT prophylaxis: SCDs Discussed with: Patient, cardio, nursing Anticipated discharge: undetermined Anticipated discharge place: undetermined A total of 45 minutes was spent on the care of this complex patient more than 50% of the time was spent in counseling and care coordination. Objective - Vital Signs Vital signs: Vital Signs Temp 98 F 10/06/20 09:12 Pulse 78 10/06/20 11:15 Resp 20 10/06/20 11:15 BP 111/71 10/06/20 11:15 Pulse Ox 98 10/06/20 09:12 Intake & Output 10/05/20 10/06/2010/06/21 18:59 06:59 18:59 Intake Total 62.167 123.233 Balance 62.167 123.233 Weight 124.738 kg 126.3 kg Intake: IV 50 Intake, IV Titration 62.167 73.233 Amount Heparin Sod,Pork in 0.45% 62.167 73.233 NaCl 25,000 unit In 0.45 % NaCl 1 250ml.bag @ 8. 0168 UNITS/KG/HR 10 mls/ hr IV .Q24H [facility] Rx#: [id number] Oral 0 Other: Voiding Method Toilet # Voids 2 - Labs CBC & Chem 7: 10/06/20 08:00 10/06/20 08:00 Labs: Abnormal Lab Results - Last 24 Hours (Table) 10/05/20 10/05/20 10/05/20 Range/Units 18:14 18:14 18:14 WBC 15.7 H (3.8-10.6) k/uL Neutrophils # 12.3 H (1.3-7.7) k/uL APTT 21.9 L (22.0-30.0) sec BUN 19 H (7-17) mg/dL Glucose 173 H (74-99) mg/dL AST (14-36) U/L ALT (4-34) U/L Troponin I (0.000-0.034) ng/mL 10/05/20 10/06/20 10/06/20 Range/Units 18:14 08:00 08:00 WBC (3.8-10.6) k/uL Neutrophils # (1.3-7.7) k/uL APTT (22.0-30.0) sec BUN (7-17) mg/dL Glucose 119 H (74-99) mg/dL AST 40 H (14-36) U/L ALT 46 H (4-34) U/L Troponin I 0.111 H* 0.194 H* (0.000-0.034) ng/mL
[2020-10-07] MEDS: SODIUM CHLORIDE 0.9% 1,000 ML IV SCH ×2 (03:02)
[2020-10-07] MEDS ORDERED: HEPARIN SODIUM,PORCINE 10,000 UNIT in SODIUM CHLORIDE 0.9% 1,000 ML IRRIGATION PRN (07:00)
[2020-10-07] MEDS ORDERED: HEPARIN SODIUM,PORCINE 2,500 UNIT in SODIUM CHLORIDE 0.9% 250 ML IRRIGATION PRN (07:00)
[2020-10-07] MEDS ORDERED: AMIODARONE 360 MG in DEXTROSE 5% IN WATER 200 ML IV ONE ×2 (08:00)
[2020-10-07] MEDS: LISINOPRIL-HCTZ 10-12.5 MG 1 EACH TAB PO SCH (08:12)
[2020-10-07 08:50] LABS: ALT 37 U/L (4-34); AST 30 U/L (14-36); African American GFR (CKD) >90 (>60 ml/min/1.73 sqM); Albumin 3.4 g/dL (3.5-5.0); Alkaline Phosphatase 58 U/L (38-126); Anion Gap 6 mmol/L; Blood Urea Nitrogen 15 mg/dL (7-17); Calcium 8.5 mg/dL (8.4-10.2); Carbon Dioxide 26 mmol/L (22-30); Chloride 107 mmol/L (98-107); Glucose 115 mg/dL (74-99); Non-African American GFR(CKD) >90 (>60 ml/min/1.73 sqM); Potassium 4.3 mmol/L (3.5-5.1); Sodium 139 mmol/L (137-145); Total Bilirubin 0.6 mg/dL (0.2-1.3); Total Protein 6.3 g/dL (6.3-8.2)
[2020-10-07 09:43] VITALS: RESP 20
[2020-10-07 12:05] VITALS: BP 125/78; PULSE 72; TEMP 97.7
--- NOTE | 2020-10-07 12:38 | P.PN ---
Subjective This is a pleasant 50-year-old female past medical history significant for asthma, hypertension, COVID-19 in July. She does not follow with a urology physician assistant. We have been asked to see in consultation for ventricular tachycardia. Patient states that she's been having symptoms of palpitations and shortness of breath for the past 3-4 years. Yesterday around 1:30 PM she started having similar episodes of palpitations, shortness of breath. She was getting ready for work she started to go for a walk because sometimes activity made him feel better. She continued to have the symptoms but this time had increased nausea and a headache and started to feel weak and bilateral arms. The symptoms were new since she decided to present to the emergency department. She denies chest pain, lightheadedness, dizziness, presyncope, syncope, symptoms of orthopnea or PND. She states that she has been followed by her primary care provider that has been monitoring this she did have a stress echo in October 2019, patient exercised for 5 minutes with a peak rate of 167 bpm which was equal to 97% maximal predicted heart rate. Stress echocardiogram test revealed no evidence of stress-induced ischemia. She also has have EKGs in her PCP's office and no capture of an abnormal rhythm. Patient denies history diabetes, MO, stroke, dyslipidemia. She states that her father had an MO at age 44, and of cardiac arrest a few months after that. Her mother also had an MO in her 50s, of cancer. On arrival to emergency department, EKG revealed wide QRS tachycardia consistent of ventricular tachycardia heart rate 213. Patient was given amiodarone 150 mg bolus and started on amiodarone drip 1 mg/min, started on a heparin drip and given 325mg Aspirin, and given 1gm of Magnesium sulfate. Patient converted back to sinus rhythm, EKG reveals sinus rhythm, heart rate 100, T wave inversion in lead III. Chest xray no acute cardiopulmon stefanie process. 10/06/2020: Patient underwent cardiac catheterization with Dr. Breen which revealed normal coronary arteries, normal LV function. Echocardiogram revealed EF between 55-60%, mild mitral regurgitation, mild tricuspid regurgitation. Plan for EP evaluation. 10/07/2020: Patient seen and examined at bedside, no acute distress. Telemetry reviewed- overnight patient in sinus rhythm HR 80-90s, no further episodes of ventricular tachycardia or ectopy noted. Patient was evaluated by Dr. Hernandez recommended starting Cardizem 120 mg daily, to start tomorrow and schedule an EP study as an outpatient. Laboratory reviewed, sodium 139, potassium 4.3, BUN 15, serum creatinine 0.71, AST 30, ALT 37, TSH within normal limits. PHYSICAL EXAMINATION Blood pressure 125/78 heart rate 72 afebrile and maintaining oxygen saturation 99% on room air CONSTITUTIONAL: No apparent distress. HEENT: Head is normocephalic. No JVD. No carotid bruit. CHEST EXAMINATION: Lungs are clear to auscultation. No chest wall tenderness is noted on palpation or with deep breathing. HEART EXAMINATION: Regular rate and rhythm. S1, S2 heard. No murmurs, gallops or rub. ABDOMEN: Soft, nontender. Positive bowel sounds. EXTREMITIES: 2+ peripheral pulses, no lower extremity edema and no calf tenderness. NEUROLOGIC EXAMINATION: Patient is awake, alert and oriented x3. ASSESSMENT Ventricular Tachycardia Elevated troponin History of Hypertension History of asthma Family history of coronary artery disease Obesity BMI 50 PLAN -Dr. Hernandez evaluated the patient this morning. -From cardiology perspective, patient is stable to be discharged home -We will start Cardizem 120mg daily, starting tomorrow. This was discussed with the patient and sent to patient's preferred pharmacy -Continue patient's home Lisinopril-Hctz -Follow up with Dr. Breen as an outpatient in 1 week. Patient also to be scheduled for an EP study as an outpatient, she was given the necessary information. Nurse Practitioner note has been reviewed, I agree with a documented findings and plan of care. Patient was seen and examined. Objective - Vital Signs Vital signs: Vital Signs Temp 97.7 F 10/07/20 12:00 Pulse 72 10/07/20 12:00 Resp 20 10/07/20 12:00 BP 125/78 10/07/20 12:00 Pulse Ox 99 10/07/20 12:00 Intake & Output 10/06/20 10/07/20 10/07/20 18:59 06:59 18:59 Intake Total 1693.233 480 Balance 1693.233 480 Weight 126.9 kg Intake: IV 50 Intake, IV Titration 323.233 Amount Amiodarone 450 mg In 250 Dextrose 5% in Water 250 ml @ 0.5 MG/MIN 16.667 mls/hr IV .Q15H [facility] Rx#: [id number] Heparin Sod,Pork in 0.45% 73.233 NaCl 25,000 unit In 0.45 % NaCl 1 250ml.bag @ 8. 0168 UNITS/KG/HR 10 mls/ hr IV .Q24H [facility] Rx#: [id number] Oral 1320 480 Other: # Voids 1 2 2 - Labs CBC & Chem 7: 10/06/20 08:00 10/07/20 07:34 Labs: Abnormal Lab Results - Last 24 Hours (Table) 10/07/20 Range/Units 07:34 Glucose 115 H (74-99) mg/dL ALT 37 H (4-34) U/L Albumin 3.4 L (3.5-5.0) g/dL
--- NOTE | 2020-10-07 15:05 | P.EPCON ---
Electrophysiology Consult - EP Consult Electrophysiology Consult: This is Dr. Hernandez dictating a consult on this patient The patient was interviewed and examined IMPRESSION / ASSESSMENT: Recurrent palpitations Wide complex tachycardia, likely SVT with aberrancy with a left bundle branch block pattern Hypertension, on lisinopril hydrochlorothiazide PLAN: I had a detailed discussion with patient and her I would recommend an EP study and likely radiofrequency ablation She may start diltiazem 120 mg by mouth daily but will stop it 5 days prior to the procedure We will schedule the procedure for HPI patient presented to the ER with sustained palpitations that did not stop and she started complaining of chest discomfort and shortness of breath She has experienced palpitations for at least 3-4 years but they have never lasted this long She was complaining of shortness of breath and she told me she was also having some chest discomfort ROS: No fever chills or rigors, no cough, phlegm or expectoration, no nausea, vomiting or diarrhea, no hematuria, dysuria, no musculoskeletal complaints, no strokes or seizures, no skin lesions. EXAMINATION: 125/70. His mercury pulse rate in the 70s afebrile Breath sounds are clear no rhonchi no crackles Normal heart sounds Normal extremity edema REVIEW OF LABS, ECG & MEDICAL DATA Hemoglobin 13.1 Sodium 139, potassium 4.3, BUN 15 and creatinine 0.7 Abnormal troponins of 0.11 and 0.19 TSH 0.618 Twelve-lead EKG shows a white complex tachycardia with a left bundle branch block with an RS time of less than 80 ms, left bundle branch block pattern Notching noted in the inferior leads but with a very short RS time Coronary angiography revealed normal coronary arteries normal LV function elevated LVEDP of 15-20 mmHg 2-D echo shows LVH with left ventricular ejection fraction of 60%
--- NOTE | 2020-10-07 17:05 | P.DS ---
Providers Date of admission: 10/05/20 19:04 Expected date of discharge: 10/07/20 Attending physician: Oriana Garcia MD Consults: 10/05/20 19:01 Consult Physician Routine Consulting Provider: Abhay Hernandez Consult Reason/Comments: vtach Do you want consulting provider notified?: Yes 10/06/20 12:16 Consult Physician Routine Consulting Provider: Abhay Hernandez Consult Reason/Comments: EP consultation Do you want consulting provider notified?: Yes Primary care physician: Santy Plasencia Hospital Course: Discharge Diagnosis: SVT with abbarency and Left BBB pattern Non-STEMI, type II secondary to demand ischemia from prolonged arrhythmia HTN Morbid obesity with BMI 51.2 Hospital Course: Patient is a 50 yo CF with a hx of HTN, palpitations, and obesity who presetned to the emergency department due to palpitaitons. She was found to be in ventricular tachycardia. She was started on amiodarone in the ER and converted to normal sinus rhythm. She was found have mildly elevated troponin. She was also started on a heparin drip. On the morning after admission she was taken for cardiac catheterization which demonstrated normal coronaries. Echocardiogram showed ejection fraction 55-60% with mild valvular disease and moderate concentric LVH. She was seen by EP who recommneded transition to car diazem long acting, outpatient follow-up and outpatient EP study and felt that rhythm was more consistent with SVT with abarency. She was discharged home in stable condition. Patient seen and examined at bedside. No additional limitations, chest pain, or shortness of breath. Vital signs reviewed and stable. General: non toxic, no distress, appears at stated age Derm: warm, dry Head: atraumatic, normocephalic, symmetric Eyes: EOMI, no lid lag, anicteric sclera Mouth: no lip lesion, mucus membranes moist Cardiovascular: S1S2 reg, no murmur, positive posterior tibial pulse bilateral, Lungs: CTA bilateral, no rhonchi, no rales , no accessory muscle use Abdominal: soft, nontender to palpation, no guarding, no appreciable organomegaly Ext: no gross muscle atrophy, no edema, no contractures Neuro: CN II-XI grossly intact, no focal neuro deficits Psych: Alert, oriented, appropriate affect A total of 38 minutes of time were spent preparing this complex discharge summary . Patient Condition at Discharge: Fair Plan - Discharge Summary Discharge Rx Participant: No New Discharge Prescriptions: New Diltiazem Cd [Cardizem CD] 120 mg PO DAILY 30 Days #30 cap.er.24h Continue Lisinopril-Hctz 10-12.5 mg [Zestoretic 10-12.5] 1 tab PO DAILY Ascorbic Acid [Vitamin C] 1,000 mg PO DAILY Cholecalciferol [Vitamin D3 (25 Mcg = 1000 Iu)] 25 mcg PO DAILY Vitamin B Complex 1 cap PO DAILY Multivitamins, Thera [Multivitamin (formulary)] 1 tab PO DAILY Discontinued Turmeric Root Extract [Turmeric] 500 mg PO DAILY Discharge Medication List Ascorbic Acid [Vitamin C] 1,000 mg PO DAILY 10/05/20 [History] Cholecalciferol [Vitamin D3 (25 Mcg = 1000 Iu)] 25 mcg PO DAILY 10/05/20 [History] Lisinopril-Hctz 10-12.5 mg [Zestoretic 10-12.5] 1 tab PO DAILY 10/05/20 [History] Multivitamins, Thera [Multivitamin (formulary)] 1 tab PO DAILY 10/05/20 [History] Vitamin B Complex 1 cap PO DAILY 10/05/20 [History] Diltiazem Cd [Cardizem CD] 120 mg PO DAILY 30 Days #30 cap.er.24h 10/07/20 [Rx] Follow up Appointment(s)/Referral(s): Kyle Plasencia MD [Primary Care Provider] - 1-2 days (office will call with date and time of follow up appointment) Noe Breen MD [STAFF PHYSICIAN] - 1 Week (office will call with date and time of follow up appointment) Patient Instructions/Handouts: *Sur[facility] - After Heart Catheterization - Division Chair Instructions, Heart Healthy Diet (DC) Activity/Diet/Wound Care/Special Instructions: Activity: as tolerated Diet: heart healthy Special Instructions: Return if symptoms recur Discharge Disposition: HOME SELF-CARE
[2020-10-08] MEDS ORDERED: DILTIAZEM CD 120 MG CAP.ER.24H PO SCH (09:00)
== END 2020-10-07 14:00 | disposition home or self-care (01) | DRG 281 ==
LOC: EC 17:44 → 3SCARD 19:04
PROVIDERS: ADMIT Internal Medicine; ATTEND Internal Medicine
PROC: 4A023N7 Measurement of Cardiac Sampling and Pressure, Left Heart, Percutaneous Approach (ICD-10-PCS; principal; 2020-10-06 12:20)
PROC: B2151ZZ Fluoroscopy of Left Heart using Low Osmolar Contrast (ICD-10-PCS; principal; 2020-10-06 12:20)
PROC: B2111ZZ Fluoroscopy of Multiple Coronary Arteries using Low Osmolar Contrast (ICD-10-PCS; principal; 2020-10-06 12:20)
DX: I47.1 Supraventricular tachycardia (principal); I21.A1 Myocardial infarction type 2; Z68.43 Body mass index [BMI] 50.0-59.9, adult; I47.2 Ventricular tachycardia; I10 Essential (primary) hypertension; E66.01 Morbid (severe) obesity due to excess calories; Z20.822 Contact with and (suspected) exposure to COVID-19; E83.42 Hypomagnesemia; I44.7 Left bundle-branch block, unspecified; J45.20 Mild intermittent asthma, uncomplicated; Z82.41 Family history of sudden cardiac death; Z82.49 Family history of ischemic heart disease and other diseases of the circulatory system; Z86.16 Personal history of COVID-19; D72.828 Other elevated white blood cell count
CPT/HCPCS: 36415; 71045; 80048; 80053; 82330; 83735; 84443; 84484; 85025; 85610; 85730; 93005; 93306; 93458; 96374; 96375; 99285

== ENCOUNTER → 2020-12-01 | Outpatient (CLI) | payer OTHER ==
[2020-12-01 15:24] LABS: HCT 42.1 % (34.0-46.0); MCH 33.2 pg (25.0-35.0); MCHC 33.3 g/dL (31.0-37.0); MCV 99.8 fL (80.0-100.0); Mean Platelet Volume 7.6; Platelet Count 327 k/uL (150-450); RBC 4.22 m/uL (3.80-5.40); RDW 12.4 % (11.5-15.5); WBC 11.6 k/uL (3.8-10.6)
[2020-12-01 15:38] LABS: African American GFR (CKD) >90 (>60 ml/min/1.73 sqM); Anion Gap 10 mmol/L; Blood Urea Nitrogen 15 mg/dL (7-17); Carbon Dioxide 26 mmol/L (22-30); Chloride 101 mmol/L (98-107); Non-African American GFR(CKD) >90 (>60 ml/min/1.73 sqM); Sodium 137 mmol/L (137-145)
== END | disposition home or self-care (01) ==
LOC: LABPAT 13:58
PROVIDERS: ATTEND Internal Medicine Clinical Cardiac Electrophysiology
DX: Z01.812 Encounter for preprocedural laboratory examination (principal); I47.1 Supraventricular tachycardia
CPT/HCPCS: 80051; 82565; 84520; 85027

== ENCOUNTER 2020-12-09 09:47 | Day surgery (SDC) | payer OTHER ==
[2020-12-07 09:50] VITALS: BMI 47.8
[~2020-12-09 09:47] MED LIST: LACTATED RINGERS 1,000 ML IV SCH; SODIUM CHLORIDE 0.9% 1,000 ML IV SCH
[2020-12-09] MEDS ORDERED: MIDAZOLAM 2 MG/2 ML VIAL ONE (11:46)
[2020-12-09] MEDS ORDERED: PROPOFOL 10 MG/ML 20 ML VIAL IV ONE (11:46)
[2020-12-09] MEDS ORDERED: DEXAMETHASONE SOD PHOSPHATE 10 MG/ML 1 ML VIAL ONE (11:46)
[2020-12-09] MEDS ORDERED: fentaNYL (PF) 50 MCG/ML 2 ML AMP ONE (11:46)
[2020-12-09] MEDS ORDERED: ISOPROTERENOL 250 MCG/1.25 ML SYR IV ONE (11:46)
[2020-12-09] MEDS ORDERED: HYDROmorphone (PF) 1 MG/ML ONE (11:46)
[2020-12-09] MEDS ORDERED: KETAMINE 10 MG/ML 20 ML VIAL ONE (11:46)
[2020-12-09] MEDS ORDERED: ONDANSETRON 4 MG/2 ML VIAL ONE (11:46)
[2020-12-09] MEDS ORDERED: LIDOCAINE 1% INJ 10MG/ML (20 ML MDV) ONE ×2 (12:06→13:44)
[2020-12-09] MEDS ORDERED: LIDOCAINE 1% INJ 10MG/ML (20 ML MDV) SQ ONE (12:38)
[2020-12-09] MEDS ORDERED: HEPARIN SODIUM 1,000 UN/ML (10ML VL) ONE (12:46)
[2020-12-09] MEDS ORDERED: ACETAMINOPHEN TAB 325 MG TAB PO PRN (15:04)
[2020-12-09] MEDS ORDERED: HYDROcodone/APAP 5-325MG 1 EACH TAB PO PRN (15:04)
--- NOTE | 2020-12-09 15:08 | P.PRLE ---
RE: Adamaris Lorenzana Dear Saravanan oClbert underwent a diagnostic EP study which confirmed that she had SVT/AV jonnathan reentry with a left bundle branch block pattern She does not have ventricular tachycardia She underwent successful slow pathway ablation for AV jonnathan reentry This was rendered noninducible both on and off Isuprel I'm stopping diltiazem She will continue all other cardiac medications he We did induced atrial fibrillation on several occasions and therefore she should be watched for atrial fibrillation in the future Thank you for entrusting me with the care of the patient Warm regards Sincerely Abhay Hernandez
--- NOTE | 2020-12-09 15:18 | P.HPCAR ---
History of Present Illness This is Dr. Hernandez dictating an H/P on this patient The patient was interviewed and examined IMPRESSION / ASSESSMENT: Wide complex tachycardia, likely SVT with aberrancy Hypertension Morbid obesity PLAN: Proceed with EP study and ablation of SVT with aberrancy HPI Patient presented to the hospital with palpitations and was found to have a wide complex tachycardia for (1 block morphology. Initially she was treated with amiodarone and she converted to sinus rhythm Amiodarone was later discontinued as it appeared to be SVT with aberrancy rather than ventricular tachycardia She was treated with oral Cardizem and is now here for an EP study and ablation of SVT She has no symptoms and coronary artery disease by cardiac catheterization ROS: No fever chills or rigors, no cough, phlegm or expectoration, no nausea, vomiting or diarrhea, no hematuria, dysuria, no musculoskeletal complaints, no strokes or seizures, no skin lesions. EXAMINATION: Afebrile 98.5F, pulse rate in the 50s, blood pressure 144/72 mmHg pulse ox 95% on room air Breath sounds are clear no rhonchi no crackles Sounds S1 and S2 normal no murmurs developed rub Abdomen soft and and extremities warm no edema REVIEW OF LABS, ECG & MEDICAL DATA Her medications list was reviewed and includes lisinopril hydrochlorothiazide, diltiazem long-acting which she has held for the last 3 days Beta-hCG negative Physical Exam Vitals: Vital Signs Temp Pulse Resp BP Pulse Ox 12/09/20 10:30 98.5 F 54 L 16 144/72 95 Intake and Output 12/09/20 12/09/20 12/09/20 06:59 14:59 22:59 Other: Weight 125 kg Past Medical History Past Medical History: Asthma, Hypertension, Osteoarthritis (OA) Additional Past Medical History / Comment(s): probable COVID in july, see Dr Hernandez H & P History of Any Multi-Drug Resistant Organisms: None Reported Past Surgical History: Heart Catheterization, Orthopedic Surgery Additional Past Surgical History / Comment(s): oral surg., arthroscopic donny knees Past Anesthesia/Blood Transfusion Reactions: Postoperative Nausea & Vomiting (PONV) Smoking Status: Never smoker - Past Family History father Additional Family Medical History / Comment(s): at 44 of major arrhythmia Physical Examination Vital Signs Temp Pulse Resp BP Pulse Ox 12/09/20 10:30 98.5 F 54 L 16 144/72 95 Intake and Output 12/09/20 12/09/20 12/09/20 06:59 14:59 22:59 Other: Weight 125 kg Results Current Medications Generic Name Dose Route Start Last Admin Trade Name Freq PRN Reason Stop Dose Admin Acetaminophen 650 mg 12/09/20 15:04 Acetaminophen Tab 325 Mg Tab PO 01/08/21 15:05 Q6HR PRN Mild Pain Hydrocodone Bitart/Acetaminophen 1 each 12/09/20 15:04 Hydrocodone/Apap 5-325mg 1 Each Tab PO 01/08/21 15:05 Q4HR PRN Moderate Pain Sodium Chloride 1,000 mls @ 20 mls/hr 12/09/20 07:42 12/09/20 10:52 Saline 0.9% IV 01/08/21 07:43 0 mls .Q24H KALYN Administration Lactated Ringer's 1,000 mls @ 20 mls/hr 12/09/20 07:42 Lactated Ringers IV 01/08/21 07:43 .Q24H KALYN Acetaminophen 1,000 mg/ IV 100 mls @ 400 mls/hr 12/09/20 16:00 Solution IVPB 12/09/20 16:14 ONCE ONE Sodium Chloride 12 ml 12/09/20 21:00 Sodium Chloride 0.9% Flush 10 Ml Syringe IV 01/08/21 21:01 Q12HR KALYN Intake and Output 12/09/20 12/09/20 12/09/20 06:59 14:59 22:59 Other: Weight 125 kg Patient Weight 12/10/20 06:59 Weight 125 kg
--- NOTE | 2020-12-09 15:24 | P.EPPROC ---
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 Written informed consent was obtained prior to the procedure Venous sheaths were placed in the right and left femoral veins and via these diagnostic mapping and ablation cath was replaced. Later a long sheath was placed in an irrigated RF catheter was used Catheters placed in the high right atrium, His bundle area right ventricle and coronary sinus Baseline measurements were normal Sinus cycle length 810 ms, WI interval 176 ms, QRS 86 ms and QT 401 ms AH 86 and HV 56 ms VA Wenckebach block 340 ms Camila response to Parahisian pacing Sinus node recovery times a 600, 504 100 ms were 04/24/2000, 1080 and 1141 ms Atrial extra stimulation revealed echo beats Slow pathway was noted at a pacing cycle length of 340 ms Isuprel was used and left bundle branch block aberrancy was noted with atrial pacing Subsequently AV camila reentry was induced However, it could not be entrain from the RV AV camila reentry with 2-1 AV block, infrahisian was induced Typical AV node reentry with left bundle branch block morphology was induced later Nonsustained atrial tachycardia from the septum was induced spontaneously on Isuprel Atrial fibrillation was induced but nonsustained lasting less than 30 seconds Circumflex terminating 3-D electro-anatomic mapping was performed. This the his cloud at the coronary sinus for mapped Slow pathway was prepped RF ablation was performed in the fluoroscopy of the coronary sinus and of the septum . Beats of junctional rhythm was noted. The site was carefully marked and RF ablation was applied here with irrigated tip catheter Thereafter high dose Isuprel was used Stated pacing was performed. There was evidence for slow pathway conduction with without any echo beats or inducible SVT Atrial extra stimulation after triple access to lie from 2 sites No echo beats noted No inducible AV camila reentry All catheters were then removed hemostasis was assured. Patient tolerance the procedure well without any acute complications
[2020-12-09] MEDS ORDERED: ACETAMINOPHEN IV (For NPO) 1,000 MG in EMPTY BAG 1 BAG IVPB ONE (16:00)
[2020-12-10 07:45] VITALS: BP 102/70; PULSE 68; RESP 16; TEMP 97.5
== END 2020-12-10 10:05 | disposition home or self-care (01) ==
LOC: CATHEP 09:47 → 6NMEDSUR 15:26 → CATHEP 12-10 10:05
PROVIDERS: ATTEND Internal Medicine Clinical Cardiac Electrophysiology
DX: I47.1 Supraventricular tachycardia (principal); I10 Essential (primary) hypertension; J45.909 Unspecified asthma, uncomplicated; E66.01 Morbid (severe) obesity due to excess calories; M19.90 Unspecified osteoarthritis, unspecified site
CPT/HCPCS: 93653; 93623; 93613; 81025; C1894; C1769 ×2; C1760 ×2; C1766; C1730 ×3; C1732; J2250; J1100; J2405; J2001; J3010; J1170; J2704

== ENCOUNTER → 2021-02-21 | Outpatient (CLI) | payer OTHER ==
--- NOTE | 2021-02-21 08:35 | US ---
EXAMINATION TYPE: US pelvis complete transvag DATE OF EXAM: 02/21/2021 COMPARISON: 2014 CLINICAL HISTORY: N95.0 Postmenopausal bleeding. Recent endo TECHNIQUE: Transvaginal (TV) and Transabdominal (TA) . Transabdominal sonographic images of the pel vis were acquired. Transvaginal sonographic images were medically necessary to better assess the fol lowing anatomy: Endometrium Date of LMP: Irregular. No menses for two years, recent bleeding EXAM MEASUREMENTS: Uterus: 9.0x4.6x3.8 cm Endometrial Stripe: 0.7 cm Right Ovary: Not seen Left Ovary: Not seen 1. Uterus: Retroverted ? Fibroid adjacent to endometrium1.8x1.4x1.3cm 2. Endometrium: Recent biopsy 3. Right Ovary: Obscured by overlying bowel gas 4. Left Ovary: Obscured by overlying bowel gas 5. Bilateral Adnexa: Obscured by overlying bowel gas 6. Posterior cul-de-sac: wnl IMPRESSION: Exam somewhat limited. Suspect fibroid uterus
== END | disposition home or self-care (01) ==
LOC: RADUSWWP 06:56
PROVIDERS: ATTEND Family Medicine
DX: N95.0 Postmenopausal bleeding (principal)
CPT/HCPCS: 76830; 76856

== ENCOUNTER → 2021-03-16 | Outpatient (CLI) | payer OTHER ==
--- NOTE | 2021-03-16 20:13 | CONS ---
CONSULTATION DATE OF SERVICE: 03/16/2021 This 50-year-old lady has been evaluated in [facility] for possible obstructive sleep apnea-hypopnea syndrome. HISTORY OF PRESENT ILLNESS/SLEEP-WAKE EVALUATION: Patient's usual sleep schedule on weekdays is from between 9 and 11 p.m. until 6 or 6:30 a.m., on weekends from 11 until 7 or 8 a.m. Usually no problems with falling asleep, although she has a TV set in the bedroom. She usually sleeps on the side and stomach positions. According to her , she snores. She wakes up from sleep once. Usually no nocturia. During the day, she may feel some sleepiness. She may take some a nap in the afternoon. [place] Sleepiness Scale is 6. She was told that she possibly stopped breathing during sleep during the ablation procedure for her heart. PAST MEDICAL HISTORY: Positive for episodes of cardiac arrhythmia, tachycardia, hypertension, asthma in childhood. MEDICATIONS: Lisinopril/hydrochlorothiazide once a day, vitamin D, vitamin B, polyvitamin, vitamin C supplement. SOCIAL HISTORY: Negative for smoking. Alcohol consumption occasional. PAST SURGICAL HISTORY: Heart ablation in November 2020. Cardiac cath in September 2020 with normal results. Bilateral arthroscopic knee surgery for meniscus problems in April and June of 2018. FAMILY HISTORY: Positive for cancer, arthritis, fibromyalgia, acid reflux. REVIEW OF SYSTEMS: Snoring, episodes of sleepiness during the day. No fevers. No double vision. No recent chest pain. No shortness of breath. No abdominal pain. No bleeding episodes. No blood in the urine. No seizure episodes. PHYSICAL EXAMINATION: GENERAL: Pleasant lady without distress. VITAL SIGNS: BP 142/63, HR 77, RR 15, height 5 feet 2-3/4 inches, weight 296.6 pounds, body mass index 48.1, temperature 97, oxygen saturation at room air 96%. HEENT: PERRLA, EOMI, evaluation of oropharynx showed tongue protrudes midline. Low position of soft palate; Mallampati III. NECK: Supple, no JVD. Thyroid is not palpable. Neck measures 15-1/2 inches in circumference. LUNGS: Clear to percussion and to auscultation. Good air exchange. No wheezing or rhonchi. HEART: S1, S2 regular. No murmurs, gallops, or rubs. ABDOMEN: Obese. EXTREMITIES: No clubbing or cyanosis. LEATHER [employer]TR[employer]KER: Awake, alert, and oriented X3. Cranial nerves 2 to 7 intact. There is no fasciculation or atrophy. noted. No focal deficits observed. IMPRESSION: 1. Snoring, witnessed episodes of stopped breathing during medical procedure, low position of soft palate, Mallampati III; possible obstructive sleep apnea-hypopnea syndrome. 2. Morbid obesity. BMI 48.1. 3. History of cardiac arrhythmia with tachycardia, treated by ablation procedure in November of 2020. 4. Hypertension. 5. Status was bilateral arthroscopic knee surgery for meniscus problems. 6. History of asthma in childhood. PLAN: 1. Polysomnography for evaluation of patient's breathing during sleep. 2. CPAP/BiPAP titration if sleep study confirms obstructive sleep apnea-hypopnea syndrome. 3. Preferable position during sleep on the side. 4. No driving if patient feels any sleepiness. 5. I will see patient for follow up visit to explain results of testing and following plan. Thank you very much for referring this patient for consultation. Sincerely, Sánchez Trevino MD, PhD, FAASM Diplomat of [place] [employer] Sleep Medicine Board of [place] [employer] Adult Education Instructor of [employer] [facility] [place] MMODL / IJN: [id number] /
== END ==
LOC: SLEEP 13:22
PROVIDERS: ATTEND Internal Medicine
DX: R06.83 Snoring (principal); E66.01 Morbid (severe) obesity due to excess calories; J45.909 Unspecified asthma, uncomplicated; I10 Essential (primary) hypertension; Z98.890 Other specified postprocedural states; Z68.42 Body mass index [BMI] 45.0-49.9, adult; Z86.79 Personal history of other diseases of the circulatory system; Z79.899 Other long term (current) drug therapy; Z88.0 Allergy status to penicillin; Z91.040 Latex allergy status
CPT/HCPCS: 99211

== ENCOUNTER → 2021-04-26 | Outpatient (CLI) | payer OTHER ==
--- NOTE | 2021-04-28 09:54 | MM ---
Reason for exam: screening (asymptomatic). Last mammogram was performed 1 year and 7 months ago. History: Family history of breast cancer in maternal aunt. Took hormonal contraceptives for 9 years beginning at age 18. Physical Findings: A clinical breast exam by your physician is recommended on an annual basis and results should be correlated with mammographic findings. MG 3D Screening Mammo W/Cad Bilateral CC and MLO view(s) were taken. Prior study comparison: October 06, 2019, bilateral MG 3d screening mammo w/cad. May 15, 2014, bilateral MG screening mammo w CAD. There are scattered fibroglandular densities. There is chronic nodularity bilateral axilla. No significant changes when compared with prior studies. ASSESSMENT: Benign, BI-RAD 2 RECOMMENDATION: Routine screening mammogram of both breasts in 1 year.
== END | disposition home or self-care (01) ==
LOC: RADMAMWWP 15:45
PROVIDERS: ATTEND Family Medicine
DX: Z12.31 Encounter for screening mammogram for malignant neoplasm of breast (principal); Z80.3 Family history of malignant neoplasm of breast
CPT/HCPCS: 77063; 77067

== ENCOUNTER → 2022-10-10 | Outpatient (CLI) | payer OTHER ==
--- NOTE | 2022-10-11 16:51 | MM ---
Reason for Exam: Screening (asymptomatic). Last mammogram was performed 1 year(s) and 5 month(s) ago. Patient History: Menarche at age 13. First Full-Term at age 28. Perimenopausal. Hormonal Contraceptives for 9 years from age 18 until age 27. Maternal aunt had breast cancer. Risk Values: Argenis 5 year model risk: 1.2%. NCI Lifetime model risk: 9.6%. Prior Study Comparison: 05/15/2014 Bilateral Screening Mammogram, [facility]. 10/06/2019 Bilateral Screening Mammogram, [facility]. 04/26/2021 Bilateral Screening Mammogram, [facility]. Tissue Density: There are scattered fibroglandular densities. Findings: Analyzed By CAD. Pattern appears stable. There is a focal asymmetry in the right mediolateral oblique view which appears to be present in 2014. No enlarging suspicious density is evident. No suspicious groups of microcalcifications, spiculated or lobular masses, architectural distortion or other secondary signs of malignancy are mammographically apparent. Overall Assessment: Benign, BI-RAD 2 Management: Screening Mammogram of both breasts in 1 year. A negative mammogram report should not preclude additional follow up of suspicious palpable abnormalities. Patient should continue monthly self breast exam. A clinical breast exam by your physician is recommended on an annual basis and results should be correlated with mammographic findings. Electronically signed and approved by: Dilshad Maria D.O. Radiologis
== END | disposition home or self-care (01) ==
LOC: RADMAMWWP 14:58
PROVIDERS: ATTEND Family Medicine
DX: Z12.31 Encounter for screening mammogram for malignant neoplasm of breast (principal); Z80.3 Family history of malignant neoplasm of breast
CPT/HCPCS: 77063; 77067

== ENCOUNTER 2022-10-12 17:45 | Observation (INO) | payer OTHER ==
[2022-10-12] MEDS ORDERED: HYDROmorphone 0.5 MG/0.5 ML SYRINGE IVP STA (19:29)
[2022-10-12] MEDS ORDERED: NALOXONE 0.4 MG/ML 1 ML VIAL IV PRN ×2 (19:33→21:25)
--- NOTE | 2022-10-12 19:33 | ED ---
Lower Extremity Injury HPI - General Chief Complaint: Extremity Injury, Lower Stated Complaint: Fall, Knee Incision Opened Time Seen by Provider: 10/12/22 19:00 Source: patient, RN notes reviewed, old records reviewed Mode of arrival: wheelchair Limitations: no limitations - History of Present Illness Initial Comments: This is a well-appearing 52-year-old female that presents to the emergency room with her complaining of right knee injury. Patient states she was discharged from the hospital after total knee this morning. Fell in the house landing on her right knee splitting open the incision around 1630 today. Patient states she does have a pain pump so she has minimal pain at this time. Denies any other injuries. MD Complaint: knee injury (right) Context: fall Treatments Prior to Arrival: bandage - Related Data Home Medications Medication Instructions Recorded Confirmed Lisinopril-Hctz 10-12.5 mg 1 tab PO DAILY 10/05/20 10/12/22 [Zestoretic 10-12.5] Aspirin EC [Ecotrin] 325 mg PO BID 10/12/22 10/12/22 HYDROcodone/APAP 7.5-325MG [[place] 1 - 2 tab PO Q6HR PRN 10/12/22 10/12/22 7.5-325] Ondansetron Odt [Zofran Odt] 4 mg PO Q8HR PRN 10/12/22 10/12/22 Sennosides [Senokot] 17.2 mg PO HS 10/12/22 10/12/22 Allergies Allergy/AdvReac Type Severity Reaction Status Date / Time latex AdvReac Mild Itching Verified 10/12/22 20:24 Penicillins AdvReac Nausea Verified 10/12/22 20:24 Review of Systems ROS Statement: Those systems with pertinent positive or pertinent negative responses have been documented in the HPI. ROS Other: All systems not noted in ROS Statement are negative. Past Medical History Past Medical History: Hypertension Additional Past Medical History / Comment(s): COVID in july History of Any Multi-Drug Resistant Organisms: None Reported Past Surgical History: Joint Replacement, Orthopedic Surgery Additional Past Surgical History / Comment(s): rt knee Past Anesthesia/Blood Transfusion Reactions: Postoperative Nausea & Vomiting (PONV) Past Psychological History: No Psychological Hx Reported Smoking Status: Never smoker Past Alcohol Use History: Rare Past Drug Use History: None Reported - Past Family History father Additional Family Medical History / Comment(s): at 44 of major arrhythmia General Exam Limitations: no limitations General appearance: alert, in no apparent distress Head exam: Present: atraumatic Eye exam: Present: normal appearance. Absent: scleral icterus, conjunctival injection, periorbital swelling ENT exam: Present: mucous membranes moist Neck exam: Absent: meningismus Respiratory exam: Absent: respiratory distress, accessory muscle use Cardiovascular Exam: Present: regular rate GI/Abdominal exam: Present: soft Right Knee exam: Present: tenderness, swelling, laceration (Surgical wound dehiscence), ecchymosis, full knee extension Lower Leg exam: Absent: tenderness Ankle exam: Absent: tenderness Foot/Toe exam: Absent: tenderness Neurovascular tendon exam: Present: no vascular compromise. Absent: abnormal cap refill, extremity cold to touch, pallor, foot drop Neurological exam: Present: alert, oriented X3 Psychiatric exam: Present: normal affect, normal mood Skin exam: Present: dry, normal color. Absent: cyanosis, diaphoretic, petechiae, pallor Course Vital Signs 10/12/22 18:52 Temperature 98.1 F Pulse Rate 85 Respiratory 20 Rate Blood Pressure 115/51 O2 Sat by Pulse 96 Oximetry - Reevaluation(s) Reevaluation #1: 10/12/22 19:[address] Byrnes via [facility], states patient will go to OR tonight. Time: 19:23 Medical Decision Making - Medical Decision Making Was pt. sent in by a medical professional or institution (, PA, SENIOR COST ESTIMATOR, urgent care, hospital, or jail...) When possible be specific @ -[No] Did you speak to anyone other than the patient for history (EMS, parent, family, police, friend...)? What history was obtained from this source @ -[No] Did you review nursing and triage notes (agree or disagree)? Why? @ -[I reviewed and agree with nursing and triage notes] Were old charts reviewed (outside hosp., previous admission, EMS record, old EKG, old radiological studies, urgent care reports/EKG's, jail records)? Report findings @ -[No old charts were reviewed] Differential Diagnosis (chest pain, altered mental status, abdominal pain women, abdominal pain men, vaginal bleeding, weakness, fever, dyspnea, syncope, headache, dizziness, GI bleed, back pain, seizure, CVA, palpatations, mental health, musculoskeletal)? @ -Laceration, fracture, wound dehiscence EKG interpreted by me (3pts min.). @ -n/a X-rays interpreted by me (1pt min.). @ -[None done] CT interpreted by me (1pt min.). @ -[None done] U/S interpreted by me (1pt. min.). @ -[None done] What testing was considered but not performed or refused? (CT, X-rays, U/S, labs)? Why? @ -[None] What meds were considered but not given or refused? Why? @ -[None] Did you discuss the management of the patient with other professionals (professionals i.e. , PA, SENIOR COST ESTIMATOR, lab, RT, psych nurse, social professionals, fixture maker, teacher, cra officer, shoe parts caser)? Give summary @ -Dr. Fox orthopedics Was smoking cessation discussed for >3mins.? @ -[No] Was critical care preformed (if so, how long)? @ -[No] Were there social determinants of health that impacted care today? How? (Homelessness, low income, unemployed, alcoholism, drug addiction, transportation, low edu. Level, literacy, decrease access to med. care, residential, rehab)? @ -[No] Was there de-escalation of care discussed even if they declined (Discuss DNR or withdrawal of care, Hospice)? DNR status @ -[No] What co-morbidities impacted this encounter? (DM, HTN, Smoking, COPD, CAD, Cancer, CVA, ARF, Chemo, Hep., AIDS, mental health diagnosis, sleep apnea, morbid obesity)? @ -Obesity, hypertension, total right knee surgery today Was patient admitted / discharged? Hospital course, mention meds given and route, prescriptions, significant lab abnormalities, going to OR and other pertinent info. @ -Admitted This is a well-appearing 52-year-old female that presents to the emergency room with her complaining of right knee injury. Patient states she was discharged from the hospital after total knee this morning. Fell in the house landing on her right knee splitting open the incision around 1630 today. Patient states she does have a pain pump so she has minimal pain at this time. Denies any other injuries. Message was sent to Dr. Fox who states patient will be taken to the operating room tonight. Patient is agreeable to this plan of care. Case was discussed with Dr. Navarro. Undiagnosed new problem with uncertain prognosis? @ -[No] Drug Therapy requiring intensive monitoring for toxicity (Heparin, Nitro, Insulin, Cardizem)? @ -[No] Were any procedures done? @ -[No] Diagnosis/symptom? @ -Surgical wound dehiscence, fall Acute, or Chronic, or Acute on Chronic? @ -Acute Uncomplicated (without systemic symptoms) or Complicated (systemic symptoms)? @ -Complicated Side effects of treatment? @ -[No] Exacerbation, Progression, or Severe Exacerbation? @ -[No] Poses a threat to life or bodily function? How? (Chest pain, USA, IA, pneumonia, PE, COPD, DKA, ARF, appy, cholecystitis, CVA, Diverticulitis, Homicidal, Suicidal, threat to staff... and all critical care pts) @ -[No] Disposition Clinical Impression: Fall, Surgical wound dehiscence Disposition: ADMITTED IP TO THIS HOSP Decision Date: 10/12/22 Decision Time: 19:34
[2022-10-12] MEDS: SODIUM CHLORIDE 0.9% 1,000 ML IV STA (20:38)
[2022-10-12] MEDS ORDERED: MAGNESIUM HYDROXIDE 2,400 MG/30 ML CUP PO PRN (21:25)
[2022-10-12] MEDS ORDERED: ONDANSETRON 4 MG/2 ML VIAL IVP PRN (21:25)
[2022-10-12] MEDS ORDERED: HYDROmorphone 1 MG/ML 1 ML SYRINGE IVP PRN (21:25)
[2022-10-12] MEDS ORDERED: HYDROmorphone 0.5 MG/0.5 ML SYRINGE IVP PRN ×2 (21:25)
[2022-10-12] MEDS ORDERED: bisacodyL 10 MG SUPP RECTAL PRN (21:25)
[2022-10-12] MEDS ORDERED: SODIUM CHLORIDE 0.9% 1,000 ML IV SCH (21:30)
[2022-10-12] MEDS ORDERED: HYDROcodone/APAP 7.5-325MG 1 EACH TAB PO PRN (21:33)
[2022-10-12] MEDS ORDERED: MIDAZOLAM 2 MG/2 ML VIAL ONE (22:27)
[2022-10-12] MEDS ORDERED: fentaNYL (PF) 50 MCG/ML 2 ML AMP ONE (22:27)
[2022-10-12] MEDS ORDERED: SODIUM CHLORIDE 0.9% 100 ML BAG ONE (22:27)
[2022-10-12] MEDS ORDERED: ceFAZolin 1,000 MG VIAL ONE (22:27)
[2022-10-12] MEDS ORDERED: IV FLUID CONTINUATION 1,000 ML IV ONE (22:31)
[2022-10-12] MEDS ORDERED: SODIUM CHLORIDE 0.9% 100 ML with ceFAZolin 2,000 MG IV ONE ×2 (22:45)
--- NOTE | 2022-10-12 22:59 | P.OP ---
Date of Procedure: 10/12/22 Preoperative Diagnosis: Traumatic wound dehiscence right total knee Postoperative Diagnosis: Traumatic wound dehiscence right total knee Procedure(s) Performed: Irrigation debridement right knee with secondary wound closure Anesthesia: BERNARDO Surgeon: Cody Fox Estimated Blood Loss (ml): 30 Pathology: none sent Condition: stable Disposition: PACU Indications for Procedure: This is a 52-year-old female that had a right total knee arthroplasty performed today. She sustained a fall at home while using her walker and had a traumatic wound dehiscence of her right knee. Patient was brought emergently to the operating room for irrigation debridement with secondary wound closure. Informed consent was obtained. Operative Findings: The operative findings are consistent with a traumatic dehiscence of the right total knee. Description of Procedure: The patient was seen in the preoperative area, the consent was reviewed and the operative site was marked with a skin marker. The patient verified the procedure and the operative site. Preoperative antibiotics were given intravenously. A general anesthetic was administered by the anesthesia department. Care was taken to make sure that all pressure points were adequately padded. The lower extremity was prepped and draped in usual sterile fashion. A universal time-out was then performed which confirmed the patient's name, surgical site, ALLERGIES, and consent. The wound was then inspected and found that approximately 10 cm of the total knee wound had dehisced. The underlying fascia was evaluated and found to be intact. The knee was irrigated with 3 L of antibiotic solution with pulsatile lavage. Subcutaneous tissues closed with 3-0 Vicryl, followed by nehemiah for the skin. Sterile dressings were applied patient was transferred recovery room stable condition.
[2022-10-13] MEDS: SODIUM CHLORIDE 0.9% 1,000 ML IV STA (05:18)
[2022-10-13] MEDS: HYDROcodone/APAP 7.5-325MG 1 EACH TAB PO PRN ×2 (05:24→11:04)
[2022-10-13 07:41] VITALS: BP 135/83; PULSE 76; RESP 17; TEMP 97.5
[2022-10-13] MEDS ORDERED: ASPIRIN 325 MG TAB PO SCH (09:00)
[2022-10-13] MEDS ORDERED: NA PHOS,M-B/NA PHOS,DI-BA 133 ML ENEMA RECTAL PRN (09:00)
--- NOTE | 2022-10-13 10:23 | P.HPOR ---
History of Present Illness H&P Date: 10/13/22 This is a 52-year-old female who is status post outpatient right total knee arthroplasty and subsequent irrigation debridement right knee with secondary wound closure on 10/12/[address] Cody Fox. Patient states that she was at home on 10/12/2022 and fell causing the right knee to fully bend underneath her. Patient states that she did not fall directly onto the knee. Patient states that she and her heard a rip and discovered that her surgical incision was open and bleeding. Patient presented to the emergency room and was taken to the operating room for emergent irrigation debridement right knee with secondary wound closure by Dr. Cody Fox. Patient is seen and evaluated at bedside today and states that her pain is well controlled and she was able to work with physical therapy today. Patient denies any new complaints today. Patient denies any fever/chills, numbness, weakness or tingling. Review of Systems See HPI. Past Medical History Past Medical History: Hypertension, Supraventricular Tachycardia (SVT) Additional Past Medical History / Comment(s): COVID in july 2020, "racing heart" History of Any Multi-Drug Resistant Organisms: None Reported Past Surgical History: Heart Catheterization, Joint Replacement, Orthopedic Surgery Additional Past Surgical History / Comment(s): rt knee, heart cath 09/2020, cardiac ablation 11/2020 Past Anesthesia/Blood Transfusion Reactions: No Reported Reaction, Postoperative Nausea & Vomiting (PONV) Past Psychological History: No Psychological Hx Reported Smoking Status: Never smoker Past Alcohol Use History: Rare Past Drug Use History: None Reported - Past Family History father Additional Family Medical History / Comment(s): at 44 of major arrhythmia Medications and Allergies Home Medications Medication Instructions Recorded Confirmed Type Lisinopril-Hctz 10-12.5 mg 1 tab PO DAILY 10/05/20 10/12/22 History [Zestoretic 10-12.5] Aspirin EC [Ecotrin] 325 mg PO BID 10/12/22 10/12/22 History HYDROcodone/APAP 7.5-325MG [[place] 1 - 2 tab PO Q6HR PRN 10/12/22 10/12/22 History 7.5-325] Ondansetron Odt [Zofran Odt] 4 mg PO Q8HR PRN 10/12/22 10/12/22 History Sennosides [Senokot] 17.2 mg PO HS 10/12/22 10/12/22 History Cephalexin [Keflex] 500 mg PO Q6HR 10 Days #40 cap 10/13/22 Rx Allergies Allergy/AdvReac Type Severity Reaction Status Date / Time latex AdvReac Mild Itching Verified 10/12/22 20:24 Penicillins AdvReac Nausea Verified 10/12/22 20:24 Physical Examination On exam patient is sitting comfortably in a chair in no acute distress. Patient is alert and oriented x3. Right lower extremity exam: Dressing is clean, dry and intact. No drainage. No erythema. Calf is soft and nontender to palpation. Sensation intact. Patient has full range of motion of the foot and ankle. Neurovascular status and circulatory status are intact. Head is normocephalic and atraumatic. Patient has full range of motion of the neck without any pain or difficulty. Exams of bilateral upper extremities and left lower extremity are within normal limits. Assessment and Plan Assessment: Traumatic wound dehiscence right total knee. (1) Fall Current Visit: Yes Status: Acute Code(s): W19.XXXA - UNSPECIFIED FALL, INITIAL ENCOUNTER SNOMED Code(s): 0771385 (2) Surgical wound dehiscence Current Visit: Yes Status: Acute Code(s): T81.31XA - DISRUPTION OF EXTERNAL OPERATION (SURGICAL) WOUND, NEC, INIT SNOMED Code(s): 04440871 (3) S/P total knee arthroplasty Current Visit: Yes Status: Acute Code(s): Z96.659 - PRESENCE OF UNSPECIFIED ARTIFICIAL KNEE JOINT SNOMED Code(s): 7930476982923 Plan: 1. An optifoam silver dressing will be applied before discharge today. Optifoam dressing stay intact for 7 days. 2. Patient may be weightbearing as tolerated with a walker. 3. Continue routine postoperative care and pain control. 4. Aspirin for anticoagulation. 5. Planning for discharge home later today. Patient has in-home physical therapy already set up. Patient is to follow-up in the office in 10 days.
--- NOTE | 2022-10-13 10:28 | P.DS ---
Providers Date of admission: 10/12/22 19:34 Expected date of discharge: 10/13/22 Attending physician: Cody Fox Primary care physician: Santy Plasencia - Discharge Diagnosis(es) (1) Fall Current Visit: Yes Status: Acute (2) Surgical wound dehiscence Current Visit: Yes Status: Acute (3) S/P total knee arthroplasty Current Visit: Yes Status: Acute Hospital Course: This is a 52-year-old female who is status post outpatient right total knee arthroplasty and subsequent irrigation debridement right knee with secondary wound closure on 10/12/[address] Cody Fox. Patient states that she was at home on 10/12/2022 and fell causing the right knee to fully bend underneath her. Patient states that she did not fall directly onto the knee. Patient states that she and her heard a rip and discovered that her surgical incision was open and bleeding. Patient presented to the emergency room and was taken to the operating room for emergent irrigation debridement right knee with secondary wound closure by Dr. Cody Fox. Patient is admitted to [facility] on 10/12/2022 and irrigation debridement right knee with secondary wound closure is performed on 10/12/2022. The procedure is performed without complication or sequelae. The patient is doing well postoperatively. Labs and vital signs are stable on day of discharge. On day of discharge patient's knee incision is healing well. There is minimal erythema. There is no drainage noted at this time. There is minimal soft tissue swelling to the hip and thigh. Patient has full foot and ankle motion without difficulty or pain. Neurovascular status to the right lower extremity is intact. Patient is discharged home in good condition. Please see med rec for accurate list of home medications. Plan - Discharge Summary Discharge Rx Participant: Yes New Discharge Prescriptions: New Cephalexin [Keflex] 500 mg PO Q6HR 10 Days #40 cap No Action Lisinopril-Hctz 10-12.5 mg [Zestoretic 10-12.5] 1 tab PO DAILY Sennosides [Senokot] 17.2 mg PO HS HYDROcodone/APAP 7.5-325MG [[place] 7.5-325] 1 - 2 tab PO Q6HR PRN PRN Reason: Pain Ondansetron Odt [Zofran Odt] 4 mg PO Q8HR PRN PRN Reason: Nausea And Vomiting Aspirin EC [Ecotrin] 325 mg PO BID Discharge Medication List Lisinopril-Hctz 10-12.5 mg [Zestoretic 10-12.5] 1 tab PO DAILY 10/05/20 [History] Aspirin EC [Ecotrin] 325 mg PO BID 10/12/22 [History] HYDROcodone/APAP 7.5-325MG [[place] 7.5-325] 1 - 2 tab PO Q6HR PRN 10/12/22 [History] Ondansetron Odt [Zofran Odt] 4 mg PO Q8HR PRN 10/12/22 [History] Sennosides [Senokot] 17.2 mg PO HS 10/12/22 [History] Cephalexin [Keflex] 500 mg PO Q6HR 10 Days #40 cap 10/13/22 [Rx] Follow up Appointment(s)/Referral(s): Kyle Plasencia MD [Primary Care Provider] - 1-2 days Cody Fox DO [Doctor of Osteopathic Medicine] - 10 Days Patient Instructions/Handouts: Knee Pain (ED) Activity/Diet/Wound Care/Special Instructions: Weightbearing as tolerated with walker. Leave dressing intact. Dressing may be removed by home care nurse or by patient 7 days postoperatively. May shower with dressing on. Please take aspirin 325 mg twice daily for 30 days to prevent blood clots. Please wear compression stockings during the day until follow-up appointment to help prevent blood clots. May remove at night. Follow-up with [facility] in 2 weeks, please call with any questions or concerns [phone] Discharge Disposition: HOME WITH HOME HEALTH SERVICES
[2022-10-13 11:22] LABS: Basophils # (A) 0.03 X 10*3/uL (0.00-0.10); Basophils % (A) 0.2 %; Eosinophils # (A) 0.01 X 10*3/uL (0.04-0.35); Eosinophils % (A) 0.1 %; HCT 31.7 % (37.2-46.3); HGB 10.2 d/dL (12.0-15.0); Lymphocytes # (A) 1.41 X 10*3/uL (0.90-5.00); Lymphocytes % (A) 7.1 %; MCH 33.2 pg (27.0-32.0); MCHC 32.2 d/dL (32.0-37.0); MCV 103.3 FL (80.0-97.0); Mean Platelet Volume 10.8 FL (9.5-12.2); Monocytes # (A) 1.13 X 10*3/uL (0.20-1.00); Monocytes % (A) 5.7 %; NRBC Per 100 WBC 0 X 10*3/uL (0.00-0.01); Neutrophils # (A) 17.22 X 10*3/uL (1.80-7.70); Neutrophils % (A) 86.2 %; Platelet Count 210 X 10*3/uL (140-440); RBC 3.07 X 10*6/uL (4.10-5.20); RDW 12.2 % (11.5-14.5); WBC 19.93 X 10*3/uL (4.50-10.00)
[2022-10-13] MEDS ORDERED: SENNOSIDES-DOCUSATE SODIUM 1 EACH TAB PO SCH (21:00)
== END 2022-10-13 12:32 | disposition home health service (06) ==
LOC: EC 17:45 → 4SSUR 19:34
PROVIDERS: ADMIT Orthopaedic Surgery; ATTEND Orthopaedic Surgery
DX: T81.31XA Disruption of external operation (surgical) wound, not elsewhere classified, initial encounter (principal); W19.XXXA Unspecified fall, initial encounter; Z96.651 Presence of right artificial knee joint; I10 Essential (primary) hypertension; Z86.16 Personal history of COVID-19; Z82.49 Family history of ischemic heart disease and other diseases of the circulatory system; I47.1 Supraventricular tachycardia; Z98.890 Other specified postprocedural states; Z79.82 Long term (current) use of aspirin; Z79.899 Other long term (current) drug therapy; Z88.0 Allergy status to penicillin; Z91.040 Latex allergy status; E66.01 Morbid (severe) obesity due to excess calories; Z68.42 Body mass index [BMI] 45.0-49.9, adult
CPT/HCPCS: 96374; 99284; 97161; 85025; 12020; G0378 ×2; J2250; J0690 ×2; J3010; J1170 ×2

== ENCOUNTER → 2023-10-17 | Outpatient (CLI) | payer BC ==
--- NOTE | 2023-10-18 08:22 | MM ---
Reason for Exam: Screening (asymptomatic). Last screening mammogram was performed 12 month(s) ago. Patient History: Menarche at age 13. First Full-Term at age 28. Postmenopausal. Hormonal Contraceptives for 9 years from age 18 until age 27. Maternal aunt had breast cancer. Risk Values: Argenis 5 year model risk: 1.2%. NCI Lifetime model risk: 9.4%. Prior Study Comparison: 10/06/2019 Bilateral Screening Mammogram, [facility]. 04/26/2021 Bilateral Screening Mammogram, [facility]. 10/10/2022 Bilateral MG 3D screening mammo w/cad, [facility]. Tissue Density: There are scattered areas of fibroglandular density. Findings: Analyzed By CAD. There is no suspicious group of microcalcifications or new suspicious mass in either breast. Overall Assessment: Negative, BI-RAD 1 Management: Screening Mammogram of both breasts in 1 year. . Patient should continue monthly self-breast exams. A clinical breast exam by your physician is recommended on an annual basis. This exam should not preclude additional follow-up of suspicious palpable abnormalities. Note on Argenis scores and lifetime risk: 1. A Argenis score greater than 3% is considered moderate risk. If this is the case, consider specialist referral to assess eligibility for a risk reducing agent. 2. If overall lifetime risk for the development of breast cancer is 20% or higher, the patient may qualify for future screening with alternating mammogram and breast MRI. Electronically signed and approved by: Oscar Patrick M.D. Radiologis
== END | disposition home or self-care (01) ==
LOC: RADMAMWWP 10:30
PROVIDERS: ATTEND Family Medicine
DX: Z12.31 Encounter for screening mammogram for malignant neoplasm of breast (principal); Z80.3 Family history of malignant neoplasm of breast; Z78.0 Asymptomatic menopausal state
CPT/HCPCS: 77063; 77067